=== PATIENT | male | born 1940 | race Caucasian/White ===

== ENCOUNTER 2018-05-20 16:22 | Inpatient (IN) | payer MEDICARE ==
[~2018-05-20] VITALS: Ht 193 cm; Wt 81.8 kg
[2018-05-20] MEDS: furosemide 10 MG/1 ML 10ml inj IV SCH (08:00)
[~2018-05-20 16:22] MED LIST: AMIO200T40 PO; ATOR20TA PO; LISI2.5T2 PO; MAGN400C PO; METO-395 PO; NITR0.4T48 SL; SPIR25TA5 PO; WARF-55 PO
[2018-05-20 16:55] LABS: BASOPHILS % (AUTO) 0.5 % (0-1); EOSINOPHILS # (AUTO) 0.1 X10'3 (0-0.9); EOSINOPHILS % (AUTO) 1.2 % (0-6); HEMATOCRIT 40.5 % (42.0-52.0); HEMOGLOBIN 13.4 g/dl (14.0-17.9); LYMPHOCYTES # (AUTO) 1.7 X10'3 (1.1-4.8); LYMPHOCYTES % (AUTO) 17.9 % (21-51); MEAN CORPUSCULAR HEMOGLOBIN 35.4 PG (27.0-31.0); MEAN CORPUSCULAR HGB CONC 33.2 % (33.0-36.5); MEAN CORPUSCULAR VOLUME 106.6 FL (78-98); MEAN PLATELET VOLUME 8.4 FL (7.4-10.4); MONOCYTES # (AUTO) 0.7 X10'3 (0-0.9); MONOCYTES % (AUTO) 7.9 % (2-12); NEUTROPHILS # (AUTO) 6.8 X10'3 (1.8-7.7); NEUTROPHILS % (AUTO) 72.5 % (42-75); PLATELET COUNT 217 X10'3 (140-440); RED CELL DISTRIBUTION WIDTH 14.8 % (11.5-14.5); WHITE BLOOD COUNT 9.4 X10'3 (4.5-11.0)
[2018-05-20] MEDS ORDERED: etomidate 2mg/ml inj. IV ONE (17:00)
[2018-05-20 17:07] LABS: ALANINE AMINOTRANSFERASE 29 U/L (12-78); ALBUMIN 3.6 G/DL (3.4-5.0); ALBUMIN/GLOBULIN RATIO 0.8 (1.1-1.5); ALKALINE PHOSPHATASE 165 IU/L (46-116); ANION GAP 9 (8-16); ASPARTATE AMINO TRANSFERASE 37 U/L (10-37); BILIRUBIN,TOTAL 1.2 MG/DL (0.1-1.0); BLOOD UREA NITROGEN 20 MG/DL (7-18); BUN/CREATININE RATIO 14.9 (5.4-32.0); CALCIUM 8.7 MG/DL (8.5-10.1); CHLORIDE 101 MMOL/L (99-107); CREATININE 1.34 MG/DL (0.60-1.10); GLUCOSE 157 MG/DL (70-104); POTASSIUM 4.1 MMOL/L (3.5-5.1); SODIUM 137 MMOL/L (135-145); TOTAL CARBON DIOXIDE 26.7 MMOL/L (24-32); eGFR 52 ML/MIN
[2018-05-20 17:08] LABS: INR 3.8 INR; PARTIAL THROMBOPLASTIN TIME 42 SECONDS (22-32); PROTHROMBIN TIME 35.7 SECONDS (9.0-12.0)
[2018-05-20] MEDS ORDERED: aspirin 81mg tab.chew PO ONE (18:00)
[2018-05-20] MEDS ORDERED: FURO-150 PO (18:43)
[2018-05-20] MEDS ORDERED: temazepam 15mg capsule PO PRN (21:00)
[2018-05-20] MEDS ORDERED: metoclopramide 5 mg/ml inj IV PRN (21:40)
[2018-05-20] MEDS ORDERED: acetaminophen 650mg rectal suppository RC PRN (21:40)
[2018-05-20] MEDS ORDERED: HYDROmorphone 1 mg/ml syringe IV PRN (21:40)
[2018-05-20] MEDS ORDERED: bisacodyl 10mg suppository rectal RC PRN (21:40)
[2018-05-20] MEDS ORDERED: acetaminophen 325mg tablet PO PRN ×2 (21:40)
[2018-05-20] MEDS ORDERED: ondansetron/PF 4mg/2ml inj IV PRN (21:40)
[2018-05-20] MEDS ORDERED: HYDROcodone/acetaminophen 10/325mg tab PO PRN (21:40)
[2018-05-20] MEDS ORDERED: mag hydrox/Alum hydrox/simeth 30ml oral suspension PO PRN (21:40)
[2018-05-20] MEDS ORDERED: magnesium hydroxide 30ml (MOM) UD suspension PO PRN (21:40)
[2018-05-20] MEDS ORDERED: morphine 4 MG/ML inj SYRINge IV PRN (21:40)
[2018-05-20 22:00] LABS: MAGNESIUM 1.8 MG/DL (1.5-2.4); PHOSPHORUS 3.7 MG/DL (2.3-4.5)
[2018-05-20 22:10] VITALS: BP 132/92
[2018-05-20 22:20] LABS: INR 3.1 INR; PROTHROMBIN TIME 29.8 SECONDS (9.0-12.0)
[2018-05-20 22:23] LABS: LIPASE 160 U/L (73-393)
[2018-05-21 03:00] VITALS: BP 112/66
[2018-05-21 06:00] VITALS: BP 114/68
[2018-05-21 06:05] LABS: BASOPHILS # (AUTO) 0.1 X10'3 (0-0.2); BASOPHILS % (AUTO) 0.8 % (0-1); EOSINOPHILS # (AUTO) 0.1 X10'3 (0-0.9); HEMATOCRIT 34.6 % (42.0-52.0); HEMOGLOBIN 11.5 g/dl (14.0-17.9); LYMPHOCYTES # (AUTO) 1.4 X10'3 (1.1-4.8); LYMPHOCYTES % (AUTO) 21.1 % (21-51); MEAN CORPUSCULAR HEMOGLOBIN 35.3 PG (27.0-31.0); MEAN CORPUSCULAR HGB CONC 33.4 % (33.0-36.5); MEAN CORPUSCULAR VOLUME 105.9 FL (78-98); MEAN PLATELET VOLUME 8.6 FL (7.4-10.4); MONOCYTES # (AUTO) 0.6 X10'3 (0-0.9); MONOCYTES % (AUTO) 9.4 % (2-12); NEUTROPHILS # (AUTO) 4.6 X10'3 (1.8-7.7); NEUTROPHILS % (AUTO) 67.7 % (42-75); PLATELET COUNT 157 X10'3 (140-440); RED BLOOD COUNT 3.26 X10'6 (4.70-6.10); RED CELL DISTRIBUTION WIDTH 14.4 % (11.5-14.5); WHITE BLOOD COUNT 6.7 X10'3 (4.5-11.0)
[2018-05-21 06:28] LABS: ALANINE AMINOTRANSFERASE 18 U/L (12-78); ALBUMIN 2.9 G/DL (3.4-5.0); ALBUMIN/GLOBULIN RATIO 0.8 (1.1-1.5); ALKALINE PHOSPHATASE 122 IU/L (46-116); ANION GAP 9 (8-16); ASPARTATE AMINO TRANSFERASE 31 U/L (10-37); BILIRUBIN,TOTAL 1.4 MG/DL (0.1-1.0); CALCIUM 8.3 MG/DL (8.5-10.1); CHLORIDE 105 MMOL/L (99-107); CHOL/HDL RATIO 2.4 (0.00-4.99); CHOLESTEROL 136 MG/DL (0-200); CREATININE 1.09 MG/DL (0.60-1.10); GLUCOSE 84 MG/DL (70-104); HDL CHOLESTEROL 56 MG/DL (35-60); LDL CHOLESTEROL 68 MG/DL (50-100); POTASSIUM 3.7 MMOL/L (3.5-5.1); SODIUM 139 MMOL/L (135-145); TOTAL PROTEIN 6.6 G/DL (6.4-8.2); TRIGLYCERIDES 86 MG/DL (20-135); eGFR 65 ML/MIN
[2018-05-21 06:35] LABS: BLOOD UREA NITROGEN 20 MG/DL (7-18); BUN/CREATININE RATIO 18.3 (5.4-32.0)
[2018-05-21 06:41] LABS: INR 2.4 INR; PROTHROMBIN TIME 23.5 SECONDS (9.0-12.0)
[2018-05-21] MEDS: furosemide 10 MG/1 ML 10ml inj IV SCH (07:30)
[2018-05-21] MEDS ORDERED: amiodarone 200mg tablet PO SCH (08:00)
[2018-05-21] MEDS ORDERED: pantoprazole 40 MG vial IV SCH (08:00)
[2018-05-21] MEDS ORDERED: nicotine 21mg patch - 24 hr TD SCH (08:00)
[2018-05-21] MEDS ORDERED: docusate sod 100mg capsule PO SCH (08:00)
[2018-05-21] MEDS ORDERED: lisinopril 2.5mg tablet PO SCH (08:00)
[2018-05-21] MEDS ORDERED: aspirin 81mg tab.chew PO SCH (08:30)
[2018-05-21] MEDS ORDERED: pneumococcal 23-VAL P-sac vacc 25 mcg/0.5ml vial IMVAC ONE (10:00)
[2018-05-21] MEDS ORDERED: metoprolol succinate 25mg (24-HOUR) SR. Tablet PO SCH ×2 (10:30→12:30)
[2018-05-21] MEDS ORDERED: potassium Cl 20 mEq SR tablet PO STA (10:33)
[2018-05-21] MEDS ORDERED: magnesium 2GM in 50ml NS 50 ML IV ONE (10:35)
[2018-05-21] MEDS ORDERED: AMIO100T4 PO ×2 (10:38→13:11)
[2018-05-21] MEDS ORDERED: METO50TA7 PO (10:49)
[2018-05-21 10:58] LABS: MAGNESIUM 1.9 MG/DL (1.5-2.4)
[2018-05-21 11:00] VITALS: BP 111/66
[2018-05-21] MEDS ORDERED: warfarin 5mg tablet PO SCH (21:00)
[2018-05-21] MEDS ORDERED: atorvastatin 20mg tablet PO SCH (21:00)
[2018-05-22] MEDS ORDERED: amiodarone 200mg tablet PO SCH ×2 (08:00)
== END 2018-05-21 16:15 | disposition home or self-care (01) | DRG 280 ==
LOC: ER 16:23 → ED HOLD 21:37 → PCU 3S 22:05
PROVIDERS: ADMIT Family Medicine; ATTEND Family Medicine
PROC: 5A2204Z Restoration of Cardiac Rhythm, Single (ICD-10-PCS; principal; 2018-05-20)
PROC: 3E0234Z Introduction of Serum, Toxoid and Vaccine into Muscle, Percutaneous Approach (ICD-10-PCS; 2018-05-21)
PROC: 4B02XTZ Measurement of Cardiac Defibrillator, External Approach (ICD-10-PCS; 2018-05-21)
DX: I47.2 Ventricular tachycardia (principal); I21.A1 Myocardial infarction type 2; I50.23 Acute on chronic systolic (congestive) heart failure; N17.9 Acute kidney failure, unspecified; I42.9 Cardiomyopathy, unspecified; I48.92 Unspecified atrial flutter; I48.0 Paroxysmal atrial fibrillation; E78.5 Hyperlipidemia, unspecified; I51.3 Intracardiac thrombosis, not elsewhere classified; E86.1 Hypovolemia; F10.10 Alcohol abuse, uncomplicated; I11.0 Hypertensive heart disease with heart failure; I25.10 Atherosclerotic heart disease of native coronary artery without angina pectoris; F17.200 Nicotine dependence, unspecified, uncomplicated; Z90.49 Acquired absence of other specified parts of digestive tract; Z95.810 Presence of automatic (implantable) cardiac defibrillator; Z23 Encounter for immunization; Z88.8 Allergy status to other drugs, medicaments and biological substances; Z79.899 Other long term (current) drug therapy; Z79.82 Long term (current) use of aspirin; Z79.01 Long term (current) use of anticoagulants; Z87.01 Personal history of pneumonia (recurrent); Z80.41 Family history of malignant neoplasm of ovary; Z71.41 Alcohol abuse counseling and surveillance of alcoholic
CPT/HCPCS: 36415; 71045; 80053; 80061; 83605; 83690; 83735; 83880; 84100; 84484; 85025; 85610; 85730; 87070; 90732; 93005; 93308; C9113; G0378; J1940; J3475; J3490

== ENCOUNTER 2018-06-26 01:27 | Inpatient (IN) | payer MEDICARE | END 2018-06-30 11:30 | disposition home or self-care (01) | LOC: ER 01:27 → PCU 3S 06-27 19:20 → ED HOLD 05:13 → PCU 3S 06:48 | DX: A41.9 Sepsis, unspecified organism (principal); I50.23 Acute on chronic systolic (congestive) heart failure; J96.01 Acute respiratory failure with hypoxia ==

== ENCOUNTER 2020-03-09 19:07 | Emergency (ER) | payer MEDICARE ==
[~2020-03-09] VITALS: Ht 193 cm; Wt 84.1 kg
[~2020-03-09 19:07] MED LIST changes: -AMIO200T40 PO; +FOLI1TAB16 PO; +FURO-150 PO; +LEVO500T89 PO; -MAGN400C PO; -METO-395 PO; +METO50TA7 PO; -NITR0.4T48 SL; +POTA20TA10 PO; -SPIR25TA5 PO; +thiamine tablet PO
[2020-03-09 19:39] LABS: BASOPHILS % (AUTO) 0.5 % (0-1); EOSINOPHILS % (AUTO) 0.4 % (0-6); HEMATOCRIT 38.3 % (42.0-52.0); HEMOGLOBIN 12.9 g/dl (14.0-17.9); LYMPHOCYTES % (AUTO) 12.1 % (21-51); MEAN CORPUSCULAR HEMOGLOBIN 35.4 PG (27.0-31.0); MEAN CORPUSCULAR HGB CONC 33.6 g/dL (33.0-36.5); MEAN CORPUSCULAR VOLUME 105.2 FL (78-98); MEAN PLATELET VOLUME 8.6 FL (7.4-10.4); MONOCYTES # (AUTO) 1.1 X10'3 (0-0.9); MONOCYTES % (AUTO) 12.6 % (2-12); NEUTROPHILS # (AUTO) 6.3 X10'3 (1.8-7.7); NEUTROPHILS % (AUTO) 74.4 % (42-75); PLATELET COUNT 160 X10'3 (140-440); RED BLOOD COUNT 3.64 X10'6 (4.70-6.10); RED CELL DISTRIBUTION WIDTH 13.3 % (11.5-14.5); WHITE BLOOD COUNT 8.5 X10'3 (4.5-11.0)
[2020-03-09 19:53] LABS: ALANINE AMINOTRANSFERASE 20 U/L (12-78); ALBUMIN 3.8 G/DL (3.4-5.0); ALKALINE PHOSPHATASE 113 IU/L (46-116); ANION GAP 2 (8-16); ASPARTATE AMINO TRANSFERASE 18 U/L (10-37); BLOOD UREA NITROGEN 22 MG/DL (7-18); BUN/CREATININE RATIO 13.4 (5.4-32.0); CALCIUM 8.7 MG/DL (8.5-10.1); CHLORIDE 103 MMOL/L (99-107); CREATININE 1.64 MG/DL (0.60-1.10); GLUCOSE 112 MG/DL (70-104); POTASSIUM 3.8 MMOL/L (3.5-5.1); SODIUM 134 MMOL/L (135-145); TOTAL CARBON DIOXIDE 29.3 MMOL/L (24-32); TOTAL PROTEIN 7.6 G/DL (6.4-8.2); eGFR 41 ML/MIN
[2020-03-09] MEDS ORDERED: MEXI150C PO (22:09)
[2020-03-09] MEDS ORDERED: SPIR25TA5 PO (22:09)
[2020-03-09] MEDS ORDERED: normal saline 1000ML IV soln IVB ONE (23:00)
[2020-03-10 01:33] VITALS: BP 108/74
== END 2020-03-10 01:29 | disposition home or self-care (01) ==
LOC: ER 19:07
DX: R42 Dizziness and giddiness (principal); R07.89 Other chest pain; R06.02 Shortness of breath; R53.83 Other fatigue; I48.91 Unspecified atrial fibrillation; J44.9 Chronic obstructive pulmonary disease, unspecified; E03.9 Hypothyroidism, unspecified; I13.0 Hypertensive heart and chronic kidney disease with heart failure and stage 1 through stage 4 chronic kidney disease, or unspecified chronic kidney disease; N18.9 Chronic kidney disease, unspecified; F17.200 Nicotine dependence, unspecified, uncomplicated; Z87.01 Personal history of pneumonia (recurrent); Z90.89 Acquired absence of other organs; Z95.0 Presence of cardiac pacemaker; Z72.89 Other problems related to lifestyle; Z88.8 Allergy status to other drugs, medicaments and biological substances; Z79.899 Other long term (current) drug therapy
CPT/HCPCS: 36415; 71045; 80053; 83880; 84484; 85025; 93005; 99285; J7030

== ENCOUNTER 2021-08-30 15:30 | Emergency (ER) | payer MEDICARE ==
[~2021-08-30] VITALS: Ht 193 cm; Wt 90.0 kg
[~2021-08-30 15:30] MED LIST changes: -FOLI1TAB16 PO; -FURO-150 PO; +FURO20TA4 PO; -LEVO500T89 PO; +LISI2.5T14 PO; -LISI2.5T2 PO; -METO50TA7 PO; -POTA20TA10 PO; +SOTA80TA73 PO; +SPIR25TA5 PO; -thiamine tablet PO
--- NOTE | 2021-08-30 15:30 | NUR ---
PT ARRIVES WITH STABLE VFIB ADENOSINE GIVEN X 2 WITH NO RESPONSE SETTING UP FOR CARDIOVERSION AWAITING DR HAYDEN
[2021-08-30] MEDS ORDERED: normal saline 1000ML IV soln IVB ONE (15:40)
[2021-08-30] MEDS ORDERED: normal saline 1000ml 1,000 ML IV ONE (15:40)
[2021-08-30] MEDS ORDERED: midazolam 1 mg/ML 2ml injection IV ONE (15:55)
[2021-08-30] MEDS ORDERED: etomidate 2mg/ml inj. IV ONE (15:55)
[2021-08-30 15:57] LABS: BASOPHILS # (AUTO) 0.1 X10'3 (0-0.2); BASOPHILS % (AUTO) 0.8 % (0-1); EOSINOPHILS % (AUTO) 0.3 % (0-6); HEMATOCRIT 38.1 % (42.0-52.0); HEMOGLOBIN 12.7 g/dl (14.0-17.9); LYMPHOCYTES # (AUTO) 1.3 X10'3 (1.1-4.8); LYMPHOCYTES % (AUTO) 16.7 % (21-51); MEAN CORPUSCULAR HEMOGLOBIN 34.5 PG (27.0-31.0); MEAN CORPUSCULAR HGB CONC 33.4 g/dL (33.0-36.5); MEAN CORPUSCULAR VOLUME 103.4 FL (78-98); MEAN PLATELET VOLUME 8.7 FL (7.4-10.4); MONOCYTES # (AUTO) 0.8 X10'3 (0-0.9); MONOCYTES % (AUTO) 9.6 % (2-12); NEUTROPHILS # (AUTO) 5.8 X10'3 (1.8-7.7); NEUTROPHILS % (AUTO) 72.6 % (42-75); PLATELET COUNT 166 X10'3 (140-440); RED BLOOD COUNT 3.68 X10'6 (4.70-6.10); RED CELL DISTRIBUTION WIDTH 14.8 % (11.5-14.5); WHITE BLOOD COUNT 7.9 X10'3 (4.5-11.0)
[2021-08-30 16:06] LABS: APTT 35 SECONDS (22-32)
[2021-08-30 16:07] LABS: ALANINE AMINOTRANSFERASE 67 U/L (12-78); ALBUMIN 3.9 G/DL (3.4-5.0); ALKALINE PHOSPHATASE 158 IU/L (46-116); ANION GAP 10 (8-16); ASPARTATE AMINO TRANSFERASE 87 U/L (10-37); BLOOD UREA NITROGEN 30 MG/DL (7-18); BUN/CREATININE RATIO 21.1 (5.4-32.0); CHLORIDE 101 MMOL/L (99-107); CREATININE 1.42 MG/DL (0.60-1.10); GLUCOSE 172 MG/DL (70-104); POTASSIUM 4.9 MMOL/L (3.5-5.1); SODIUM 136 MMOL/L (135-145); TOTAL CARBON DIOXIDE 24.9 MMOL/L (24-32); TOTAL PROTEIN 7.7 G/DL (6.4-8.2); eGFR 48 ML/MIN
[2021-08-30 16:16] LABS: ETHANOL < 0.010 GM/DL (0.0-0.010); MAGNESIUM 2.2 MG/DL (1.5-2.4)
--- NOTE | 2021-08-30 16:25 | NUR ---
charting handed over to eli moseley
[2021-08-30] MEDS ORDERED: METO-384 PO (17:07)
[2021-08-30] MEDS ORDERED: magnesium hydroxide 30ml (MOM) UD suspension PO PRN (17:50)
[2021-08-30] MEDS ORDERED: mag hydrox/Alum hydrox/simeth 30ml oral suspension PO PRN (17:50)
[2021-08-30] MEDS ORDERED: acetaminophen 325mg tablet PO PRN (17:50)
[2021-08-30] MEDS ORDERED: ondansetron/PF 4mg/2ml inj IV PRN (17:50)
[2021-08-30] MEDS ORDERED: normal saline 1000ml 1,000 ML IV SCH (17:50)
[2021-08-30] MEDS: metoprolol succinate 25mg (24-HOUR) SR. Tablet PO SCH (19:46)
[2021-08-30] MEDS: docusate sod 100mg capsule PO SCH (19:46)
[2021-08-30] MEDS: lisinopril 2.5mg tablet PO SCH (19:47)
[2021-08-30] MEDS: furosemide 20MG tablet PO SCH (19:47)
--- NOTE | 2021-08-30 20:47 | NUR ---
pt resting on gurney in no acute distress. pt aware of waiting on admission. lights turned off for pt comfort
[2021-08-30] MEDS ORDERED: warfarin 5mg tablet PO SCH (21:00)
[2021-08-30 21:26] LABS: CLARITY,URINE CLEAR (Clear); COLOR,URINE YELLOW (Yellow); GLUCOSE, URINE NEGATIVE (Neg); KETONES,URINE NEGATIVE (Neg); LEUKOCYTE ESTERASE ,URINE NEGATIVE (Neg); NITRITES, URINE NEGATIVE (Neg); OCCULT BLOOD,URINE NEGATIVE (Neg); PH,URINE 5.5 (4.8-8.0); PROTEIN,URINE NEGATIVE (Neg); UROBILINOGEN,URINE 0.2 E.U/dL (0.2-1.0)
[2021-08-30 21:31] LABS: UA COLLECTION TYPE VOIDED
--- NOTE | 2021-08-30 21:34 | NUR ---
hospitalist aware pt trop 668. no new orders received
[2021-08-30] MEDS ORDERED: temazepam 15mg capsule PO PRN (23:20)
[2021-08-31 01:16] LABS: BASOPHILS % (AUTO) 0.6 % (0-1); EOSINOPHILS % (AUTO) 0.5 % (0-6); HEMATOCRIT 30.4 % (42.0-52.0); HEMOGLOBIN 10.4 g/dl (14.0-17.9); LYMPHOCYTES # (AUTO) 1.4 X10'3 (1.1-4.8); LYMPHOCYTES % (AUTO) 23.2 % (21-51); MEAN CORPUSCULAR HGB CONC 34.4 g/dL (33.0-36.5); MEAN CORPUSCULAR VOLUME 101.6 FL (78-98); MEAN PLATELET VOLUME 8.6 FL (7.4-10.4); MONOCYTES # (AUTO) 0.7 X10'3 (0-0.9); MONOCYTES % (AUTO) 11.1 % (2-12); NEUTROPHILS % (AUTO) 64.6 % (42-75); PLATELET COUNT 134 X10'3 (140-440); RED BLOOD COUNT 2.99 X10'6 (4.70-6.10); RED CELL DISTRIBUTION WIDTH 14.3 % (11.5-14.5); WHITE BLOOD COUNT 6.2 X10'3 (4.5-11.0)
[2021-08-31 01:23] LABS: ANION GAP 4 (8-16); BLOOD UREA NITROGEN 29 MG/DL (7-18); BUN/CREATININE RATIO 26.6 (5.4-32.0); CALCIUM 8.2 MG/DL (8.5-10.1); CHLORIDE 107 MMOL/L (99-107); CREATININE 1.09 MG/DL (0.60-1.10); GLUCOSE 86 MG/DL (70-104); POTASSIUM 4.2 MMOL/L (3.5-5.1); SODIUM 138 MMOL/L (135-145); TOTAL CARBON DIOXIDE 26.6 MMOL/L (24-32); eGFR 65 ML/MIN
--- NOTE | 2021-08-31 02:07 | NUR ---
PT SLEEPING COMFORTABLY. EQUAL RISE AND FALL OF CHEST. VITALS STABLE.
[2021-08-31 06:00] VITALS: BP 134/69
[2021-08-31] MEDS ORDERED: atorvastatin 20mg tablet PO SCH (08:00)
[2021-08-31] MEDS ORDERED: spironolactone 25 MG tablet PO SCH (08:00)
[2021-08-31] MEDS: metoprolol succinate 25mg (24-HOUR) SR. Tablet PO SCH ×2 (08:00→09:01)
[2021-08-31] MEDS: furosemide 20MG tablet PO SCH (08:58)
[2021-08-31] MEDS: lisinopril 2.5mg tablet PO SCH (09:00)
[2021-08-31] MEDS: docusate sod 100mg capsule PO SCH (09:01)
[2021-08-31 11:00] VITALS: BP 129/69
[2021-09-30] MEDS ORDERED: AMIO200T27 PO (02:14)
[2021-09-30] MEDS ORDERED: FURO-150 PO (02:15)
[2021-09-30] MEDS ORDERED: METO-384 PO (02:17)
[2021-10-02] MEDS ORDERED: LISI2.5T14 PO (10:19)
[2021-10-02] MEDS ORDERED: SPIR25TA PO (10:19)
[2021-10-02] MEDS ORDERED: AMIO200T67 PO (10:19)
[2021-10-02] MEDS ORDERED: FURO-150 PO (10:19)
== END 2021-08-31 14:48 | disposition home or self-care (01) ==
LOC: ER 15:30 → ED HOLD 17:48 → PCU 3S 08-31 05:45
PROVIDERS: ADMIT Family Medicine; ATTEND Family Medicine
DX: R77.8 Other specified abnormalities of plasma proteins (principal); I47.1 Supraventricular tachycardia; R06.02 Shortness of breath; I13.0 Hypertensive heart and chronic kidney disease with heart failure and stage 1 through stage 4 chronic kidney disease, or unspecified chronic kidney disease; N18.9 Chronic kidney disease, unspecified; I48.91 Unspecified atrial fibrillation; J44.9 Chronic obstructive pulmonary disease, unspecified; E03.9 Hypothyroidism, unspecified; Z76.89 Persons encountering health services in other specified circumstances; Z87.01 Personal history of pneumonia (recurrent); Z90.89 Acquired absence of other organs; Z95.0 Presence of cardiac pacemaker; Z72.89 Other problems related to lifestyle; Z88.8 Allergy status to other drugs, medicaments and biological substances; Z79.899 Other long term (current) drug therapy
CPT/HCPCS: 36415; 71045; 80048; 80053; 80320; 81003; 83735; 83880; 84484; 85025; 85610; 85651; 85730; 92960; 93005; 94799; 96361; 96374; 97116; 97161; 97530; 99291; G0378; J2250; J3490; J7030; 94760

== ENCOUNTER 2021-09-28 01:25 | Inpatient (IN) | payer MEDICARE ==
--- NOTE | 2021-09-27 12:00 | NUR ---
No sitter needed at this time, sitter was removed from room. Nursing to continue to monitor.
[~2021-09-28] VITALS: Ht 193 cm; Wt 81.8 kg
[2021-09-28] VITALS (11 sets, daily range): BP systolic 81–115; BP diastolic 51–92
[~2021-09-28 01:25] MED LIST changes: +METO-384 PO; -SOTA80TA73 PO
[2021-09-28] MEDS ORDERED: etomidate 2mg/ml inj. IV ONE (01:45)
--- NOTE | 2021-09-28 01:45 | NUR ---
at bedside to cardiovert patient
--- NOTE | 2021-09-28 01:50 | NUR ---
Pt cardioverted at 50 joules. Pt tolerated procedure well. HR is now 85 with PVCs. EKG being performed at bedside right now.
[2021-09-28] MEDS ORDERED: aspirin 325mg tablet PO ONE (01:55)
[2021-09-28 01:59] LABS: BASOPHILS % (AUTO) 0.4 % (0-1); EOSINOPHILS # (AUTO) 0.1 X10'3 (0-0.9); EOSINOPHILS % (AUTO) 0.9 % (0-6); HEMATOCRIT 37.8 % (42.0-52.0); HEMOGLOBIN 12.8 g/dl (14.0-17.9); LYMPHOCYTES # (AUTO) 0.8 X10'3 (1.1-4.8); LYMPHOCYTES % (AUTO) 9.4 % (21-51); MEAN CORPUSCULAR HEMOGLOBIN 34.5 PG (27.0-31.0); MEAN CORPUSCULAR HGB CONC 33.9 g/dL (33.0-36.5); MEAN CORPUSCULAR VOLUME 101.7 FL (78-98); MEAN PLATELET VOLUME 8.5 FL (7.4-10.4); MONOCYTES # (AUTO) 0.3 X10'3 (0-0.9); MONOCYTES % (AUTO) 3.3 % (2-12); NEUTROPHILS # (AUTO) 7.3 X10'3 (1.8-7.7); PLATELET COUNT 177 X10'3 (140-440); RED BLOOD COUNT 3.72 X10'6 (4.70-6.10); RED CELL DISTRIBUTION WIDTH 13.9 % (11.5-14.5); WHITE BLOOD COUNT 8.5 X10'3 (4.5-11.0)
[2021-09-28 02:17] LABS: ALANINE AMINOTRANSFERASE 42 U/L (12-78); ALBUMIN 3.7 G/DL (3.4-5.0); ALBUMIN/GLOBULIN RATIO 0.9 (1.1-1.5); ALKALINE PHOSPHATASE 145 IU/L (46-116); ANION GAP 11 (8-16); ASPARTATE AMINO TRANSFERASE 56 U/L (10-37); BILIRUBIN,TOTAL 1.1 MG/DL (0.1-1.0); BLOOD UREA NITROGEN 24 MG/DL (7-18); BUN/CREATININE RATIO 16.4 (5.4-32.0); CALCIUM 8.8 MG/DL (8.5-10.1); CHLORIDE 99 MMOL/L (99-107); CREATININE 1.46 MG/DL (0.60-1.10); GLUCOSE 202 MG/DL (70-104); POTASSIUM 4.6 MMOL/L (3.5-5.1); SODIUM 135 MMOL/L (135-145); TOTAL CARBON DIOXIDE 25.2 MMOL/L (24-32); TOTAL PROTEIN 7.8 G/DL (6.4-8.2); eGFR 46 ML/MIN
[2021-09-28] MEDS ORDERED: ipratropium/albuterol 3ml nebule NEB ONE (02:20)
[2021-09-28] MEDS ORDERED: normal saline 1000ML IV soln IVB ONE ×2 (03:30→04:15)
--- NOTE | 2021-09-28 03:30 | NUR ---
notified that pt blood pressure is consistently lowering. Pt's last BP was 83/58. Addendum: 09/28/21 at 0331 by RBOLT ordered 500ml fluid bolus in response
[2021-09-28] MEDS ORDERED: cefTRIAXone 1g/NS 100ml IVPB 100 ML IV ONE (03:35)
[2021-09-28] MEDS ORDERED: azithromycin/NS 500mg/250ml 250 ML IV ONE (03:35)
[2021-09-28] MEDS ORDERED: potassium CL 10mEq/100ml bag 100 ML IV PRN (04:15)
[2021-09-28] MEDS ORDERED: magnesium Cl slow-release 64mg tablet PO PRN (04:15)
[2021-09-28] MEDS ORDERED: POTASSIUM BICARB 20meq eff tab 20 MEQ TABLET.EFF PO PRN ×2 (04:15)
[2021-09-28] MEDS ORDERED: acetaminophen 325mg tablet PO PRN ×2 (04:15)
[2021-09-28] MEDS ORDERED: ondansetron/PF 4mg/2ml inj IV PRN (04:15)
[2021-09-28] MEDS ORDERED: magnesium 4gm in 100ml NS 100 ML IV PRN (04:15)
[2021-09-28] MEDS ORDERED: magnesium 2GM in 50ml NS 50 ML IV PRN (04:15)
[2021-09-28] MEDS ORDERED: magnesium hydroxide 30ml (MOM) UD suspension PO PRN (04:15)
[2021-09-28] MEDS ORDERED: HYDROcodone/acetaminophen 10/325mg tab PO PRN (04:15)
[2021-09-28] MEDS ORDERED: HYDROcodone/acetaminophen 5mg/325mg tablet PO PRN (04:15)
[2021-09-28] MEDS ORDERED: mag hydrox/Alum hydrox/simeth 30ml oral suspension PO PRN (04:15)
[2021-09-28] MEDS ORDERED: morphine 2 MG/ML inj. syringe IV PRN ×2 (04:15)
--- NOTE | 2021-09-28 04:22 | NUR ---
MD notified of BP of 78/47. MD ordered another 500ml fluid bolus. Pt lungs sound clear to auscultation.
--- NOTE | 2021-09-28 04:57 | NUR ---
RN spoke with Hospitalist who gave verbal order to start pt on dopamine to correct blood pressure.
[2021-09-28] MEDS ORDERED: DOPamine 400mg/D5W 250ml 250 ML IV SCH (05:00)
[2021-09-28 05:11] LABS: CREATININE 1.31 MG/DL (0.60-1.10); MAGNESIUM 1.5 MG/DL (1.5-2.4); POTASSIUM 4.9 MMOL/L (3.5-5.1); eGFR 52 ML/MIN
--- NOTE | 2021-09-28 05:25 | NUR ---
Hospitalist paged in regards to critical troponin lab value.
--- NOTE | 2021-09-28 07:50 | NUR ---
Patient received on bertin to PCU. Pt is a/ox4 and very pleasant. He is able to make his needs be known and no c/o or s/s pain or distress. Call light within reach. Oriented to room. Pt on 4L NC with stable O2. Dopamine running at 5mcg with stable BP. Will continue to monitor.
[2021-09-28] MEDS: docusate sod 100mg capsule PO SCH ×2 (08:00→20:04)
[2021-09-28] MEDS ORDERED: warfarin 5mg tablet PO SCH (08:00)
[2021-09-28] MEDS ORDERED: spironolactone 25 MG tablet PO SCH (08:00)
[2021-09-28] MEDS ORDERED: metoprolol succinate 25mg (24-HOUR) SR. Tablet PO SCH (08:00)
[2021-09-28] MEDS: K and/or MAG REPLACEMENT MC SCH ×2 (08:00→20:00)
[2021-09-28] MEDS: furosemide 20MG tablet PO SCH ×2 (08:00→20:00)
[2021-09-28] MEDS: lisinopril 2.5mg tablet PO SCH ×2 (08:00→20:00)
--- NOTE | 2021-09-28 09:34 | NUR ---
Conchis BEST r/t AM medication PAGER ID: [phone] MESSAGE: [phone] Cristopher Simon BP 92/52 HR 51-65 need direction on HTN med and Diuretic AM med
--- NOTE | 2021-09-28 09:39 | NUR ---
Per MD Perez: hold all AM meds until MD reviews further d/t low SBP 92 & HR 51
[2021-09-28] MEDS: atorvastatin 20mg tablet PO SCH (10:46)
--- NOTE | 2021-09-28 12:10 | NUR ---
Paged SHIFT SUPERVISOR FILM PROCESSING [phone]. Cristopher Simon. SBP 80's. Manual 92/55. Did not give meds yet. Pt asymptomatic. Pls advise.
--- NOTE | 2021-09-28 12:35 | NUR ---
Per AUTOMATIC SCREWMAKER JK, ok to hold AM doses d/t SBP 92.
--- NOTE | 2021-09-28 13:40 | NUR ---
Pt's BP continuous to be on the soft side but pt is asymptomatic and MAP is above 60. Monitoring closely.
[2021-09-28] MEDS ORDERED: amiodarone 150mg/dext, iso-os 100 ML IV ONE (15:30)
--- NOTE | 2021-09-28 18:03 | NUR ---
Orientee documentation: I have reviewed and agree with all interventions, assessments performed and documented by TONY Valentin II.
--- NOTE | 2021-09-28 18:30 | NUR ---
Patient in room PCU 3015. I have received report from fany and had the opportunity to ask questions and assume patient care.
--- NOTE | 2021-09-28 18:30 | NUR ---
Patient in room U 3015. I have received report from MARVEL HIGGINS and had the opportunity to ask questions and assume patient care WITH TONY ARTIS. Addendum: 09/29/21 at 0156 by Keon Davidson RN Amended: Links added.
--- NOTE | 2021-09-28 20:00 | NUR ---
I have reviewed and agree with all interventions, assessments performed and documented by TONY ARTIS.. Addendum: 09/29/21 at 0200 by Keon Davidson RN Amended: Links added.
[2021-09-28] MEDS: amiodarone 200mg tablet PO SCH (20:04)
--- NOTE | 2021-09-28 20:33 | NUR ---
pt phone is missing, looked through bed and linen unable to locate, pt has foam charger in wall, angelita ramos. wofe called and she states he had his phone today and did not take it home. will look through linen in room. Addendum: 09/28/21 at 2033 by Keon Davidson RN Amended: Links added.
--- NOTE | 2021-09-28 20:35 | NUR ---
pt found phone in bed under leg. Addendum: 09/28/21 at 2034 by Keon Davidson RN Amended: Links added.
[2021-09-28] MEDS ORDERED: warfarin 5mg tablet PO ONE (21:00)
[2021-09-29] VITALS (8 sets, daily range): BP systolic 85–141; BP diastolic 53–85
[2021-09-29 06:12] LABS: LYMPHOCYTES # (AUTO) 0.7 X10'3 (1.1-4.8); MEAN PLATELET VOLUME 8.3 FL (7.4-10.4); MONOCYTES # (AUTO) 0.6 X10'3 (0-0.9)
[2021-09-29 06:16] LABS: BASOPHILS % (AUTO) 0.9 % (0-1); EOSINOPHILS # (AUTO) 0.1 X10'3 (0-0.9); EOSINOPHILS % (AUTO) 2.8 % (0-6); HEMATOCRIT 28.3 % (42.0-52.0); HEMOGLOBIN 9.8 g/dl (14.0-17.9); LYMPHOCYTES % (AUTO) 13.1 % (21-51); MEAN CORPUSCULAR HEMOGLOBIN 35.3 PG (27.0-31.0); MEAN CORPUSCULAR HGB CONC 34.6 g/dL (33.0-36.5); MEAN CORPUSCULAR VOLUME 102.1 FL (78-98); MONOCYTES % (AUTO) 11.1 % (2-12); NEUTROPHILS # (AUTO) 3.8 X10'3 (1.8-7.7); NEUTROPHILS % (AUTO) 72.1 % (42-75); PLATELET COUNT 108 X10'3 (140-440); RED BLOOD COUNT 2.77 X10'6 (4.70-6.10); RED CELL DISTRIBUTION WIDTH 14.3 % (11.5-14.5); WHITE BLOOD COUNT 5.2 X10'3 (4.5-11.0)
--- NOTE | 2021-09-29 06:19 | NUR ---
Problems reprioritized. Patient report given, questions answered & plan of care reviewed with
[2021-09-29 06:22] LABS: ALANINE AMINOTRANSFERASE 51 U/L (12-78); ALBUMIN 2.7 G/DL (3.4-5.0); ALBUMIN/GLOBULIN RATIO 0.9 (1.1-1.5); ALKALINE PHOSPHATASE 83 IU/L (46-116); ANION GAP 5 (8-16); ASPARTATE AMINO TRANSFERASE 50 U/L (10-37); BLOOD UREA NITROGEN 23 MG/DL (7-18); BUN/CREATININE RATIO 19.8 (5.4-32.0); CALCIUM 7.9 MG/DL (8.5-10.1); CHLORIDE 104 MMOL/L (99-107); CREATININE 1.16 MG/DL (0.60-1.10); GLUCOSE 95 MG/DL (70-104); POTASSIUM 4.3 MMOL/L (3.5-5.1); SODIUM 135 MMOL/L (135-145); TOTAL CARBON DIOXIDE 26.2 MMOL/L (24-32); TOTAL PROTEIN 5.8 G/DL (6.4-8.2); eGFR 60 ML/MIN
--- NOTE | 2021-09-29 06:35 | NUR ---
Patient was p/u by Myriam with annalise. Personal belongings were bagged with pt label pending pts brother Chauncey to p/u. All addtl ppwk completed. Addendum: 09/29/21 at 0637 by Mariah Turner RN wrong patient
--- NOTE | 2021-09-29 07:49 | NUR ---
paged power technician [id number]. Cristopher Simon. Needs EKG, ever. x
[2021-09-29] MEDS: lisinopril 2.5mg tablet PO SCH (08:00)
[2021-09-29] MEDS ORDERED: metoprolol succinate 25mg (24-HOUR) SR. Tablet PO SCH (08:00)
[2021-09-29] MEDS: K and/or MAG REPLACEMENT MC SCH (08:00)
[2021-09-29] MEDS: furosemide 20MG tablet PO SCH ×2 (08:00→10:16)
--- NOTE | 2021-09-29 08:16 | NUR ---
Per HELP DESK TEAM LEADER JK. With auto BP of 105/62, HR low 60's and manual BP 98/68, HR low 60's. Ok to give metoprolol. Hold lisinopril.
[2021-09-29 08:26] LABS: MAGNESIUM 1.9 MG/DL (1.5-2.4)
[2021-09-29] MEDS: docusate sod 100mg capsule PO SCH (08:30)
[2021-09-29] MEDS: atorvastatin 20mg tablet PO SCH (08:31)
[2021-09-29] MEDS: amiodarone 200mg tablet PO SCH (08:31)
--- NOTE | 2021-09-29 10:22 | NUR ---
HR elevated after walk with therapies. Lasix given as ordered
[2021-09-29] MEDS ORDERED: spironolactone 25 MG tablet PO SCH (12:00)
[2021-09-29] MEDS ORDERED: FURO20TA4 PO (12:11)
[2021-09-29] MEDS ORDERED: METO-384 PO (12:11)
--- NOTE | 2021-09-29 12:24 | NUR ---
Aldactone given unable to scan medication r/t no barcode
--- NOTE | 2021-09-29 12:42 | NUR ---
Paged Dr Perez PAGER ID: [phone] MESSAGE: [phone]. Cristopher Simon. Pls fix conflict of meds in d/c ppwk. Mariah Kay [phone]
--- NOTE | 2021-09-29 13:11 | NUR ---
Pged Dr Perez PAGER ID: [phone] MESSAGE: [phone]. Cristopher Simon. Pls rev conflict in d/c ppwk. Pt is waiting to leave. Rahul Lemus [phone]
[2021-09-29] MEDS ORDERED: ondansetron 4mg rapidly disintigrating tab PO PRN (13:15)
[2021-09-29] MEDS ORDERED: AMIO200T67 PO (13:44)
--- NOTE | 2021-09-29 14:40 | NUR ---
Attempted to call [facility] at [phone]. Both times I was on hold for over 10 minutes and then they hung up on me. I was not able to speak with anyone. Faxed prescriptions to [facility] at [phone].
--- NOTE | 2021-09-29 14:45 | NUR ---
Patient prepared for discharge, all PIVs removed and tolerated well with no c/o pain present. Tele monitor removed and returned. All personal belongings packed and given to . at bedside during discharge. All paperwork gone over with questions answered r/t new medications and f/u appointment. Patient medication were faxed prior to discharge to [facility]. Patient taken down stairs via w/c and loaded in to private vehicle with . Discharge delayed r/t medication conflict.
--- NOTE | 2021-09-29 16:25 | NUR ---
Orientee documentation: I have reviewed and agree with all interventions, assessments performed and documented by TONY Valentin II.
--- NOTE | 2021-09-29 17:44 | NUR ---
Called darryl x 2 times; on hold for 10 min. Finally spoke with pharmacist. New RX called in. Returned call to at [phone]. Also, advised of red shirt left behind. She will p/u at some point.
[2021-09-29] MEDS ORDERED: warfarin 5mg tablet PO ONE (21:00)
[2021-09-30] MEDS ORDERED: AMIO200T27 PO (02:14)
[2021-09-30] MEDS ORDERED: FURO-150 PO (02:15)
[2021-09-30] MEDS ORDERED: METO-384 PO (02:17)
[2021-10-02] MEDS ORDERED: LISI2.5T14 PO (10:19)
[2021-10-02] MEDS ORDERED: FURO-150 PO (10:19)
[2021-10-02] MEDS ORDERED: AMIO200T67 PO (10:19)
[2021-10-02] MEDS ORDERED: SPIR25TA PO (10:19)
== END 2021-09-29 14:46 | disposition home or self-care (01) | DRG 308 ==
LOC: ER 01:26 → ED HOLD 04:17 → PCU 3S 07:48
PROVIDERS: ADMIT Internal Medicine; ATTEND Internal Medicine
PROC: 5A2204Z Restoration of Cardiac Rhythm, Single (ICD-10-PCS; principal; 2021-09-28)
PROC: 4B02XTZ Measurement of Cardiac Defibrillator, External Approach (ICD-10-PCS; 2021-09-28)
DX: I47.2 Ventricular tachycardia (principal); N17.0 Acute kidney failure with tubular necrosis; I13.0 Hypertensive heart and chronic kidney disease with heart failure and stage 1 through stage 4 chronic kidney disease, or unspecified chronic kidney disease; I50.22 Chronic systolic (congestive) heart failure; I42.0 Dilated cardiomyopathy; E03.9 Hypothyroidism, unspecified; J44.9 Chronic obstructive pulmonary disease, unspecified; I95.9 Hypotension, unspecified; N18.9 Chronic kidney disease, unspecified; E78.5 Hyperlipidemia, unspecified; F10.10 Alcohol abuse, uncomplicated; I25.10 Atherosclerotic heart disease of native coronary artery without angina pectoris; I48.0 Paroxysmal atrial fibrillation; Z79.01 Long term (current) use of anticoagulants; Z79.899 Other long term (current) drug therapy; Z90.49 Acquired absence of other specified parts of digestive tract; Z87.01 Personal history of pneumonia (recurrent); Z95.810 Presence of automatic (implantable) cardiac defibrillator; Z88.8 Allergy status to other drugs, medicaments and biological substances; Z80.9 Family history of malignant neoplasm, unspecified
CPT/HCPCS: 36415; 71045; 80053; 82565; 83735; 83880; 84132; 84484; 85025; 85610; 87081; 93005; 93306; 94640; 94760; 96365; 96375; 97161; 97530; 99291; G0378; J0282; J0456; J0696; J1265; J3490; J7030

== ENCOUNTER 2022-03-19 00:11 | Inpatient (IN) | payer MEDICARE ==
[~2022-03-19] VITALS: Ht 188 cm; Wt 77.3 kg
[~2022-03-19 00:11] MED LIST changes: +AMIO200T67 PO; +FURO-150 PO; -FURO20TA4 PO; +SPIR25TA PO; -SPIR25TA5 PO
[2022-03-19 00:54] LABS: BASOPHILS # (AUTO) 0.1 X10'3 (0-0.2); BASOPHILS % (AUTO) 1.1 % (0-1); EOSINOPHILS # (AUTO) 0.1 X10'3 (0-0.9); EOSINOPHILS % (AUTO) 1.3 % (0-6); HEMATOCRIT 35.4 % (42.0-52.0); HEMOGLOBIN 12.2 g/dl (14.0-17.9); LYMPHOCYTES # (AUTO) 1.7 X10'3 (1.1-4.8); LYMPHOCYTES % (AUTO) 24.2 % (21-51); MEAN CORPUSCULAR HEMOGLOBIN 34.4 PG (27.0-31.0); MEAN CORPUSCULAR HGB CONC 34.5 g/dL (33.0-36.5); MEAN CORPUSCULAR VOLUME 99.8 FL (78-98); MEAN PLATELET VOLUME 8.7 FL (7.4-10.4); MONOCYTES # (AUTO) 0.6 X10'3 (0-0.9); MONOCYTES % (AUTO) 8.5 % (2-12); NEUTROPHILS # (AUTO) 4.6 X10'3 (1.8-7.7); NEUTROPHILS % (AUTO) 64.9 % (42-75); PLATELET COUNT 165 X10'3 (140-440); RED BLOOD COUNT 3.55 X10'6 (4.70-6.10); RED CELL DISTRIBUTION WIDTH 15.3 % (11.5-14.5); WHITE BLOOD COUNT 7.1 X10'3 (4.5-11.0)
[2022-03-19 00:58] LABS: ALANINE AMINOTRANSFERASE 48 U/L (12-78); ALBUMIN 3.7 G/DL (3.4-5.0); ALBUMIN/GLOBULIN RATIO 0.9 (1.1-1.5); ALKALINE PHOSPHATASE 145 IU/L (46-116); ANION GAP 12 (8-16); ASPARTATE AMINO TRANSFERASE 66 U/L (10-37); BILIRUBIN,TOTAL 0.8 MG/DL (0.1-1.0); BLOOD UREA NITROGEN 23 MG/DL (7-18); BUN/CREATININE RATIO 16.2 (5.4-32.0); CALCIUM 9.1 MG/DL (8.5-10.1); CHLORIDE 99 MMOL/L (99-107); CREATININE 1.42 MG/DL (0.60-1.10); GLUCOSE 130 MG/DL (70-104); POTASSIUM 3.7 MMOL/L (3.5-5.1); SODIUM 138 MMOL/L (135-145); TOTAL CARBON DIOXIDE 27.3 MMOL/L (24-32); TOTAL PROTEIN 7.7 G/DL (6.4-8.2); eGFR 48 ML/MIN
[2022-03-19] MEDS ORDERED: etomidate 2mg/ml inj. IV ONE (01:35)
[2022-03-19] MEDS ORDERED: normal saline 1000ML IV soln IVB STA (02:12)
[2022-03-19] MEDS ORDERED: potassium Cl 40MEQ/270ML bag 250 ML IV PRN (02:50)
[2022-03-19] MEDS ORDERED: potassium Cl 20mEq/100mL bag 100 ML IV PRN (02:50)
[2022-03-19] MEDS ORDERED: potassium CL 10mEq/100ml bag 100 ML IV PRN (02:50)
[2022-03-19] MEDS ORDERED: magnesium hydroxide 30ml (MOM) UD suspension PO PRN (02:50)
[2022-03-19] MEDS ORDERED: magnesium 4gm in 100ml NS 100 ML IV PRN (02:50)
[2022-03-19] MEDS ORDERED: potassium Cl 40MEQ/1/2NS 520ml 520 ML IV PRN (02:50)
[2022-03-19] MEDS ORDERED: PERFLUTREN PROTEIN-A MICROSPHR (Optison) 0.22 MG/ML 3ML VIAL IV ONE (02:50)
[2022-03-19] MEDS ORDERED: acetaminophen 325mg tablet PO PRN (02:50)
[2022-03-19] MEDS ORDERED: magnesium 2GM in 50ml NS 50 ML IV PRN (02:50)
[2022-03-19] MEDS ORDERED: potassium Cl 20 mEq SR tablet PO PRN (02:50)
[2022-03-19] MEDS ORDERED: mag hydrox/Alum hydrox/simeth 30ml oral suspension PO PRN (02:50)
[2022-03-19] MEDS ORDERED: ondansetron/PF 4mg/2ml inj IV PRN (02:50)
[2022-03-19 03:25] LABS: MAGNESIUM 1.9 MG/DL (1.5-2.4)
[2022-03-19] MEDS ORDERED: SACU1TAB PO (03:28)
[2022-03-19] MEDS ORDERED: FURO20TA4 PO (03:28)
[2022-03-19] MEDS ORDERED: FURO40TA4 PO (03:28)
[2022-03-19] MEDS ORDERED: METO-411 PO (03:28)
[2022-03-19] MEDS ORDERED: LISI2.5T14 PO (03:32)
[2022-03-19] MEDS ORDERED: SPIR25TA5 PO (03:41)
[2022-03-19] MEDS ORDERED: SOTA80TA73 PO (04:08)
[2022-03-19] MEDS ORDERED: spironolactone 25 MG tablet PO SCH ×2 (08:00→09:07)
[2022-03-19] MEDS: docusate sod 100mg capsule PO SCH ×2 (08:44→20:21)
[2022-03-19] MEDS: sacubitril/valsartan 24mg-26mg tablet PO SCH ×2 (08:44→20:36)
[2022-03-19] MEDS: atorvastatin 20mg tablet PO SCH (08:44)
[2022-03-19] MEDS: metoprolol succinate 25mg (24-HOUR) SR. Tablet PO SCH ×2 (08:45→20:20)
--- NOTE | 2022-03-19 08:50 | NUR ---
Pt is resting well, VS are stable and no distress noted at this time
[2022-03-19] MEDS ORDERED: enoxaparin 40mg/0.4ml syringe SQ SCH (20:00)
[2022-03-19 20:45] VITALS: BP 121/74
--- NOTE | 2022-03-19 20:45 | NUR ---
Patient in room PCU 3025. I have received report from er and had the opportunity to ask questions and assume patient care.
[2022-03-19] MEDS ORDERED: Melatonin 3mg tablet PO ONE (21:00)
[2022-03-19] MEDS ORDERED: warfarin 5mg tablet PO ONE (21:00)
--- NOTE | 2022-03-20 06:34 | NUR ---
Problems reprioritized. Patient report given, questions answered & plan of care reviewed with
--- NOTE | 2022-03-20 06:35 | NUR ---
Patient in room PCU 3025. I have received report from David Toth and had the opportunity to ask questions and assume patient care.
[2022-03-20 07:15] VITALS: BP 91/53
[2022-03-20 07:28] LABS: BASOPHILS # (AUTO) 0.1 X10'3 (0-0.2); EOSINOPHILS # (AUTO) 0.1 X10'3 (0-0.9); EOSINOPHILS % (AUTO) 0.9 % (0-6); HEMATOCRIT 30.3 % (42.0-52.0); HEMOGLOBIN 10.2 g/dl (14.0-17.9); MEAN CORPUSCULAR HEMOGLOBIN 33.8 PG (27.0-31.0); MEAN CORPUSCULAR HGB CONC 33.5 g/dL (33.0-36.5); MEAN CORPUSCULAR VOLUME 100.8 FL (78-98); MEAN PLATELET VOLUME 9.4 FL (7.4-10.4); MONOCYTES # (AUTO) 0.8 X10'3 (0-0.9); MONOCYTES % (AUTO) 13.1 % (2-12); NEUTROPHILS # (AUTO) 3.9 X10'3 (1.8-7.7); PLATELET COUNT 128 X10'3 (140-440); RED BLOOD COUNT 3.01 X10'6 (4.70-6.10); RED CELL DISTRIBUTION WIDTH 14.9 % (11.5-14.5); WHITE BLOOD COUNT 5.8 X10'3 (4.5-11.0)
[2022-03-20 07:34] LABS: ALANINE AMINOTRANSFERASE 43 U/L (12-78); ALBUMIN 2.7 G/DL (3.4-5.0); ALBUMIN/GLOBULIN RATIO 0.9 (1.1-1.5); ALKALINE PHOSPHATASE 108 IU/L (46-116); ANION GAP 7 (8-16); ASPARTATE AMINO TRANSFERASE 43 U/L (10-37); BILIRUBIN,TOTAL 1.6 MG/DL (0.1-1.0); BLOOD UREA NITROGEN 19 MG/DL (7-18); BUN/CREATININE RATIO 17.6 (5.4-32.0); CALCIUM 8.1 MG/DL (8.5-10.1); CHLORIDE 103 MMOL/L (99-107); CREATININE 1.08 MG/DL (0.60-1.10); GLUCOSE 90 MG/DL (70-104); MAGNESIUM 1.9 MG/DL (1.5-2.4); POTASSIUM 3.5 MMOL/L (3.5-5.1); SODIUM 138 MMOL/L (135-145); TOTAL CARBON DIOXIDE 27.6 MMOL/L (24-32); TOTAL PROTEIN 5.7 G/DL (6.4-8.2); eGFR 65 ML/MIN
[2022-03-20] MEDS ORDERED: amiodarone 200mg tablet PO SCH (08:00)
[2022-03-20] MEDS: docusate sod 100mg capsule PO SCH (08:00)
[2022-03-20] MEDS: metoprolol succinate 25mg (24-HOUR) SR. Tablet PO SCH (08:45)
[2022-03-20 10:00] VITALS: BP 90/59
[2022-03-20 12:08] VITALS: BP_SYST 90
[2022-03-20] MEDS: sacubitril/valsartan 24mg-26mg tablet PO SCH (12:08)
[2022-03-20] MEDS ORDERED: AMIO200T67 PO (12:08)
[2022-03-20] MEDS: atorvastatin 20mg tablet PO SCH (12:08)
--- NOTE | 2022-03-20 12:09 | NUR ---
Systolic BP 90, MD aware and okay with medications given.
--- NOTE | 2022-03-20 14:20 | NUR ---
Reviewed discharge instructions with pt and pt's spouse. Pt verbalized understanding. Pt has follow up appointments scheduled. Pt is alert, oriented and expresses a readiness to discharge home. Pt was dressed and wheeled downstairs to be driven home by his spouse. All of pt's belongings were returned to pt.
[2022-03-20] MEDS ORDERED: warfarin 3mg tablet PO ONE (21:00)
== END 2022-03-20 14:13 | disposition home or self-care (01) | DRG 308 ==
LOC: ER 00:12 → ED HOLD 02:55 → PCU 3S 20:30
PROVIDERS: ADMIT Family Medicine; ATTEND Family Medicine
PROC: 5A2204Z Restoration of Cardiac Rhythm, Single (ICD-10-PCS; principal; 2022-03-19)
PROC: 4B02XTZ Measurement of Cardiac Defibrillator, External Approach (ICD-10-PCS; 2022-03-19)
DX: I47.20 Ventricular tachycardia, unspecified (principal); N17.0 Acute kidney failure with tubular necrosis; I13.0 Hypertensive heart and chronic kidney disease with heart failure and stage 1 through stage 4 chronic kidney disease, or unspecified chronic kidney disease; I42.9 Cardiomyopathy, unspecified; I50.22 Chronic systolic (congestive) heart failure; N18.30 Chronic kidney disease, stage 3 unspecified; I48.0 Paroxysmal atrial fibrillation; E78.5 Hyperlipidemia, unspecified; J44.9 Chronic obstructive pulmonary disease, unspecified; E03.9 Hypothyroidism, unspecified; I25.10 Atherosclerotic heart disease of native coronary artery without angina pectoris; Z87.891 Personal history of nicotine dependence; Z90.49 Acquired absence of other specified parts of digestive tract; Z95.810 Presence of automatic (implantable) cardiac defibrillator; Z88.8 Allergy status to other drugs, medicaments and biological substances; Z79.899 Other long term (current) drug therapy
CPT/HCPCS: 36415; 71045; 80053; 83735; 83880; 84484; 85025; 85610; 87081; 93005; 93306; 94760; 97116; 97161; 99291; G0378; J3490; J7030

== ENCOUNTER 2022-05-04 07:17 | Inpatient (IN) | payer MEDICARE ==
[~2022-05-04] VITALS: Ht 193 cm; Wt 75.0 kg
[~2022-05-04 07:17] MED LIST changes: -FURO-150 PO; +FURO40TA4 PO; -LISI2.5T14 PO; -METO-384 PO; +METO-411 PO; +SACU1TAB PO; -SPIR25TA PO; +SPIR25TA5 PO
[2022-05-04 08:14] LABS: BASOPHILS # (AUTO) 0.1 X10'3 (0-0.2); EOSINOPHILS % (AUTO) 0.5 % (0-6); HEMATOCRIT 35.3 % (42.0-52.0); HEMOGLOBIN 11.7 g/dl (14.0-17.9); LYMPHOCYTES % (AUTO) 11.7 % (21-51); MEAN CORPUSCULAR HEMOGLOBIN 34.6 PG (27.0-31.0); MEAN CORPUSCULAR HGB CONC 33.1 g/dL (33.0-36.5); MEAN CORPUSCULAR VOLUME 104.4 FL (78-98); MEAN PLATELET VOLUME 9.1 FL (7.4-10.4); MONOCYTES # (AUTO) 0.8 X10'3 (0-0.9); MONOCYTES % (AUTO) 9.3 % (2-12); NEUTROPHILS # (AUTO) 6.9 X10'3 (1.8-7.7); NEUTROPHILS % (AUTO) 77.5 % (42-75); PLATELET COUNT 214 X10'3 (140-440); RED BLOOD COUNT 3.38 X10'6 (4.70-6.10); RED CELL DISTRIBUTION WIDTH 19.8 % (11.5-14.5); WHITE BLOOD COUNT 8.9 X10'3 (4.5-11.0)
[2022-05-04 08:39] LABS: ALANINE AMINOTRANSFERASE 18 U/L (12-78); ALBUMIN 3.4 G/DL (3.4-5.0); ALBUMIN/GLOBULIN RATIO 0.9 (1.1-1.5); ALKALINE PHOSPHATASE 115 IU/L (46-116); ANION GAP 10 (8-16); ASPARTATE AMINO TRANSFERASE 33 U/L (10-37); BILIRUBIN,TOTAL 3.9 MG/DL (0.1-1.0); BLOOD UREA NITROGEN 23 MG/DL (7-18); BUN/CREATININE RATIO 15.1 (5.4-32.0); CHLORIDE 103 MMOL/L (99-107); CREATININE 1.52 MG/DL (0.60-1.10); GLUCOSE 132 MG/DL (70-104); SODIUM 140 MMOL/L (135-145); TOTAL CARBON DIOXIDE 26.9 MMOL/L (24-32); TOTAL PROTEIN 7.4 G/DL (6.4-8.2); eGFR 44 ML/MIN
[2022-05-04] MEDS ORDERED: furosemide 10 MG/1 ML 10ml inj IV ONE (09:00)
[2022-05-04 09:11] LABS: PLATELET ESTIMATE NORMAL
[2022-05-04 09:12] LABS: ANISOCYTOSIS 2+; POLYCHROMASIA 1+
[2022-05-04 09:13] LABS: ACANTHOCYTES 1+; ELLIPTOCYTES 1+; SCHISTOCYTES FEW
[2022-05-04] MEDS ORDERED: ipratropium/albuterol 3ml nebule NEB PRN (11:25)
[2022-05-04] MEDS ORDERED: magnesium hydroxide 30ml (MOM) UD suspension PO PRN (11:25)
[2022-05-04] MEDS ORDERED: acetaminophen 325mg tablet PO PRN ×2 (11:25)
[2022-05-04] MEDS ORDERED: HYDROcodone/acetaminophen 10/325mg tab PO PRN (11:25)
[2022-05-04] MEDS ORDERED: morphine 2 MG/ML inj. syringe IV PRN ×2 (11:25)
[2022-05-04] MEDS ORDERED: mag hydrox/Alum hydrox/simeth 30ml oral suspension PO PRN (11:25)
[2022-05-04] MEDS ORDERED: potassium Cl 40MEQ/1/2NS 520ml 520 ML IV PRN (11:25)
[2022-05-04] MEDS ORDERED: bisacodyl 10mg suppository rectal RC PRN (11:25)
[2022-05-04] MEDS ORDERED: potassium Cl 20 mEq SR tablet PO PRN (11:25)
[2022-05-04] MEDS ORDERED: ondansetron/PF 4mg/2ml inj IV PRN (11:25)
[2022-05-04] MEDS ORDERED: magnesium Cl slow-release 64mg tablet PO PRN (11:25)
[2022-05-04] MEDS ORDERED: HYDROcodone/acetaminophen 5mg/325mg tablet PO PRN (11:25)
[2022-05-04] MEDS ORDERED: magnesium 4gm in 100ml NS 100 ML IV PRN (11:25)
[2022-05-04] MEDS ORDERED: diphenhydrAMINE 25mg capsule PO PRN (11:25)
[2022-05-04] MEDS: ipratropium/albuterol 3ml nebule NEB SCH ×2 (14:17→21:08)
[2022-05-04] MEDS ORDERED: AMIO200T61 PO (17:28)
[2022-05-04] MEDS: K and/or MAG REPLACEMENT MC SCH (19:37)
[2022-05-04] MEDS: furosemide 10 MG/1 ML 10ml inj IV SCH (20:14)
--- NOTE | 2022-05-04 20:19 | NUR ---
CALLED REPORT UP TO TELE. GAVE REPORT TO THE ACCEPTING NURSE.
[2022-05-04] MEDS: docusate sod 100mg capsule PO SCH (20:29)
[2022-05-04 21:00] VITALS: BP 111/64
[2022-05-05] VITALS (7 sets, daily range): BP systolic 94–109; BP diastolic 48–72
[2022-05-05] MEDS: ipratropium/albuterol 3ml nebule NEB SCH ×4 (02:55→20:18)
--- NOTE | 2022-05-05 06:15 | NUR ---
Patient in room PCU 3012. I have received report from Luis GRIER and had the opportunity to ask questions and assume patient care.Bedside report completed. Pt sleeping, Call light in reach. Will follow care of Pt with Haja JIMENEZ. Addendum: 05/05/22 at 0788 by Pastora Escobar RN Amended: Links added.
--- NOTE | 2022-05-05 06:32 | NUR ---
Patient in room PCU 3012A. I have received report from Luis GRIER and had the opportunity to ask questions and assume patient care. Bedside report given. Patient sleeping. No distress. CAll light within reach. Addendum: 05/05/22 at 0632 by Haja Gan LVN Amended: Links added.
[2022-05-05 07:19] LABS: BASOPHILS % (AUTO) 0.7 % (0-1); EOSINOPHILS % (AUTO) 0.4 % (0-6); HEMATOCRIT 31.4 % (42.0-52.0); HEMOGLOBIN 10.6 g/dl (14.0-17.9); LYMPHOCYTES # (AUTO) 0.7 X10'3 (1.1-4.8); LYMPHOCYTES % (AUTO) 10.5 % (21-51); MEAN CORPUSCULAR HEMOGLOBIN 34.3 PG (27.0-31.0); MEAN CORPUSCULAR HGB CONC 33.6 g/dL (33.0-36.5); MEAN CORPUSCULAR VOLUME 102.1 FL (78-98); MEAN PLATELET VOLUME 8.9 FL (7.4-10.4); MONOCYTES # (AUTO) 0.6 X10'3 (0-0.9); MONOCYTES % (AUTO) 9.8 % (2-12); NEUTROPHILS # (AUTO) 5.1 X10'3 (1.8-7.7); NEUTROPHILS % (AUTO) 78.6 % (42-75); PLATELET COUNT 158 X10'3 (140-440); RED BLOOD COUNT 3.08 X10'6 (4.70-6.10); RED CELL DISTRIBUTION WIDTH 18.7 % (11.5-14.5); WHITE BLOOD COUNT 6.5 X10'3 (4.5-11.0)
[2022-05-05] MEDS: docusate sod 100mg capsule PO SCH ×2 (07:46→20:14)
[2022-05-05] MEDS: K and/or MAG REPLACEMENT MC SCH ×2 (08:00→19:08)
[2022-05-05 08:34] LABS: ANISOCYTOSIS 3+; PLATELET ESTIMATE NORMAL; POIKILOCYTOSIS FEW
--- NOTE | 2022-05-05 09:58 | NUR ---
Message: 3012a [place] He is to receive lasix 40 iv bid. His SBP is 98 to 94. I have been holding this med. Parameter is hold for SBP below 100. Pastora DUNN
[2022-05-05 10:37] LABS: ALANINE AMINOTRANSFERASE 67 U/L (12-78); ALBUMIN 2.8 G/DL (3.4-5.0); ALBUMIN/GLOBULIN RATIO 0.8 (1.1-1.5); ALKALINE PHOSPHATASE 88 IU/L (46-116); ANION GAP 8 (8-16); ASPARTATE AMINO TRANSFERASE 78 U/L (10-37); BILIRUBIN,TOTAL 2.5 MG/DL (0.1-1.0); BLOOD UREA NITROGEN 27 MG/DL (7-18); BUN/CREATININE RATIO 22.7 (5.4-32.0); CALCIUM 8.6 MG/DL (8.5-10.1); CHLORIDE 102 MMOL/L (99-107); CREATININE 1.19 MG/DL (0.60-1.10); GLUCOSE 93 MG/DL (70-104); PHOSPHORUS 2.8 MG/DL (2.3-4.5); POTASSIUM 3.4 MMOL/L (3.5-5.1); SODIUM 139 MMOL/L (135-145); TOTAL CARBON DIOXIDE 29.5 MMOL/L (24-32); TOTAL PROTEIN 6.2 G/DL (6.4-8.2); eGFR 59 ML/MIN
[2022-05-05] MEDS: potassium Cl 20 mEq SR tablet PO PRN ×3 (10:46→20:23)
--- NOTE | 2022-05-05 10:52 | NUR ---
Dr. Stone notified Message: [id number]- Laube- Pt reconcile home meds. Patient reports he would like to take his daily routine meds. Janet Gan LVN. Transaction number: [id number]
[2022-05-05] MEDS: furosemide 10 MG/1 ML 10ml inj IV SCH ×2 (11:36→20:15)
--- NOTE | 2022-05-05 11:36 | NUR ---
Pt SBP 105 at this time administered a.m. Lasix dose of 40mg IV
[2022-05-05] MEDS ORDERED: spironolactone 25 MG tablet PO SCH ×2 (12:30→14:56)
[2022-05-05] MEDS ORDERED: warfarin 5mg tablet PO SCH (12:30)
--- NOTE | 2022-05-05 13:07 | NUR ---
Per Dr. Stone, Give Amiodarone 200mg x 1 tablet NOW. is at beside. Addendum: 05/05/22 at 1320 by Haja Gan LVN Per Pt, he reports SOB and tremors when taking Amiodarone. Notified.
[2022-05-05] MEDS ORDERED: amiodarone 200mg tablet PO ONE (13:10)
[2022-05-05] MEDS ORDERED: amiodarone 200mg tablet PO SCH (13:10)
--- NOTE | 2022-05-05 14:12 | NUR ---
Dr. Stone ordered Coumadin 5mg Now. Pharmacy refused to deliver until INR taken. INR drawn. Results called to pharmacy. Pharmacy notified Dr. Stone. Results were Coumadin will be given tonight at 2100hrs.
--- NOTE | 2022-05-05 17:57 | NUR ---
I have reviewed and agree with all interventions, assessments performed and documented by Haja JIMENEZ. Addendum: 05/05/22 at 1759 by Pastora Escobar RN Amended: Links added.
--- NOTE | 2022-05-05 18:20 | NUR ---
Problems reprioritized. Patient report given, questions answered & plan of care reviewed with Luis GRIER. Call light within reach. No distress noted. Bed in lowest position. Bedside report given. Addendum: 05/05/22 at 1821 by Haja Gan LVN Amended: Links added.
[2022-05-05] MEDS: metoprolol succinate 25mg (24-HOUR) SR. Tablet PO SCH (20:00)
[2022-05-05] MEDS: sacubitril/valsartan 24mg-26mg tablet PO SCH (20:14)
[2022-05-05] MEDS: amiodarone 200mg tablet PO SCH (20:14)
[2022-05-05] MEDS ORDERED: warfarin 5mg tablet PO ONE (21:00)
--- NOTE | 2022-05-05 22:22 | NUR ---
Pt had Lasix 40 mg IV at 2000 PM at that time BP was 109/72, now is 2224 PM BP is 84/48, charge nurse notified for Hold metoprolol 100 mg PO at [facility].
[2022-05-05] MEDS ORDERED: LORazepam 1 MG tablet PO PRN (23:00)
[2022-05-05] MEDS ORDERED: LORazepam 2 mg/ml vial IV PRN (23:00)
[2022-05-06] MEDS: thiamine 100mg tablet PO SCH ×2 (00:03→07:54)
[2022-05-06 02:00] VITALS: BP 94/53
[2022-05-06] MEDS: ipratropium/albuterol 3ml nebule NEB SCH ×2 (02:39→08:20)
[2022-05-06 06:31] LABS: BASOPHILS % (AUTO) 0.5 % (0-1); EOSINOPHILS # (AUTO) 0.1 X10'3 (0-0.9); EOSINOPHILS % (AUTO) 0.8 % (0-6); HEMATOCRIT 29.6 % (42.0-52.0); HEMOGLOBIN 10.2 g/dl (14.0-17.9); LYMPHOCYTES # (AUTO) 0.7 X10'3 (1.1-4.8); LYMPHOCYTES % (AUTO) 10.8 % (21-51); MEAN CORPUSCULAR HEMOGLOBIN 34.8 PG (27.0-31.0); MEAN CORPUSCULAR HGB CONC 34.4 g/dL (33.0-36.5); MEAN CORPUSCULAR VOLUME 101.3 FL (78-98); MEAN PLATELET VOLUME 8.7 FL (7.4-10.4); MONOCYTES # (AUTO) 0.8 X10'3 (0-0.9); NEUTROPHILS # (AUTO) 5.1 X10'3 (1.8-7.7); NEUTROPHILS % (AUTO) 75.9 % (42-75); PLATELET COUNT 169 X10'3 (140-440); RED BLOOD COUNT 2.92 X10'6 (4.70-6.10); RED CELL DISTRIBUTION WIDTH 18.5 % (11.5-14.5); WHITE BLOOD COUNT 6.7 X10'3 (4.5-11.0)
--- NOTE | 2022-05-06 06:42 | NUR ---
Bedside report is given to AM MARVEL Mckinnon.
[2022-05-06 06:53] LABS: ALANINE AMINOTRANSFERASE 54 U/L (12-78); ALBUMIN 2.8 G/DL (3.4-5.0); ALBUMIN/GLOBULIN RATIO 0.8 (1.1-1.5); ALKALINE PHOSPHATASE 96 IU/L (46-116); ANION GAP 7 (8-16); ASPARTATE AMINO TRANSFERASE 46 U/L (10-37); BILIRUBIN,TOTAL 1.4 MG/DL (0.1-1.0); BLOOD UREA NITROGEN 26 MG/DL (7-18); BUN/CREATININE RATIO 21.1 (5.4-32.0); CALCIUM 8.7 MG/DL (8.5-10.1); CHLORIDE 99 MMOL/L (99-107); CREATININE 1.23 MG/DL (0.60-1.10); GLUCOSE 108 MG/DL (70-104); MAGNESIUM 1.9 MG/DL (1.5-2.4); PHOSPHORUS 2.6 MG/DL (2.3-4.5); POTASSIUM 3.5 MMOL/L (3.5-5.1); SODIUM 137 MMOL/L (135-145); TOTAL CARBON DIOXIDE 30.8 MMOL/L (24-32); TOTAL PROTEIN 6.3 G/DL (6.4-8.2); eGFR 56 ML/MIN
[2022-05-06 07:00] VITALS: BP 90/41
[2022-05-06] MEDS: docusate sod 100mg capsule PO SCH (07:52)
[2022-05-06] MEDS: amiodarone 200mg tablet PO SCH (07:53)
[2022-05-06] MEDS: K and/or MAG REPLACEMENT MC SCH (08:00)
[2022-05-06] MEDS: metoprolol succinate 25mg (24-HOUR) SR. Tablet PO SCH (08:00)
[2022-05-06] MEDS: furosemide 10 MG/1 ML 10ml inj IV SCH (08:00)
[2022-05-06] MEDS ORDERED: atorvastatin 20mg tablet PO SCH (08:00)
[2022-05-06] MEDS: sacubitril/valsartan 24mg-26mg tablet PO SCH (08:00)
[2022-05-06 11:00] VITALS: BP 101/53
[2022-05-06] MEDS ORDERED: MULT-1085 PO (13:03)
[2022-05-06] MEDS ORDERED: THIA50TA10 PO (13:03)
[2022-05-06] MEDS ORDERED: FOLI1TAB27 PO (13:03)
[2022-05-06] MEDS ORDERED: ALBU6.7H14 INH (13:05)
[2022-05-06 15:00] VITALS: BP 101/56
--- NOTE | 2022-05-06 15:50 | NUR ---
Patient was DC to home with HH and PT. PIV was removed with cannula intact. RX were sent to [facility] in [place]. DC instructions and warning s/s were reviewed with and patient both verbalized understanding. Patient belongings were sent home with the patient and . Patient was alert, oriented, and appropriate at time of DC. All questions were answered. Patient was wheeled out the front and helped into the car.
[2022-05-06] MEDS ORDERED: warfarin 5mg tablet PO ONE (21:00)
[2022-05-10] MEDS ORDERED: folic acid 1mg tablet PO SCH (08:00)
--- NOTE | 2022-05-24 15:55 | NUR ---
Case Management DC follow up:Spoke with Patient via telephone.S/P Patient Reports: Denies: Acute/continuous CP, emergent SOB, resp distress, dyspnea, N/V, weakness, vertigo, syncope episodes, orthostatic hypotension.Verbalizes he is fatigued.Denies: SHAW, blurry vision, s/s of stroke/BE-FAST,dysphagia, dysuria, hematuria, retention,abdominal pain/distention, hematochezia, melena, unexplained bruising, bleeding, fever, chills.Verbalizes understanding of new Rx: why prescribed; continues/resumes current Rx as ordered.Verbalized understanding of s/s that warrant a 02-04/ER visit for further evaluation.Verbalized [facility] health nurse missed last visit because nurse was sick. Verbalized they haven not heard from the nurse since.I telephoned [facility] and returned call to Patient.I apprised Patient that the [facility] nurse will be out tomorrow.Spoke with Patient regarding recording daily weights,and being cognizant of fluid intake.Verbalizes follow up appointment with PCP 05/08/22, and has seen 05/10/22.Verbalizes the nurses, Doctors, and staff were excellent.Needs met, questions/concerns addressed at DC; no further questions/concerns regarding recent hospital stay and/or DC status at this time. Addendum: 05/24/22 at 1627 by Arianna Burrell RN Verbalized the bertin in the ER was too short, and his feet were cold.
== END 2022-05-06 15:49 | disposition home health service (06) | DRG 190 ==
LOC: ER 07:18 → ED HOLD 11:27 → EDBEDREQ 17:49 → PCU 3S 20:45
PROVIDERS: ADMIT Family Medicine; ATTEND Family Medicine
DX: J44.1 Chronic obstructive pulmonary disease with (acute) exacerbation (principal); N17.0 Acute kidney failure with tubular necrosis; I13.0 Hypertensive heart and chronic kidney disease with heart failure and stage 1 through stage 4 chronic kidney disease, or unspecified chronic kidney disease; E03.9 Hypothyroidism, unspecified; E78.5 Hyperlipidemia, unspecified; Z20.822 Contact with and (suspected) exposure to COVID-19; Z96.649 Presence of unspecified artificial hip joint; I49.5 Sick sinus syndrome; F10.90 Alcohol use, unspecified, uncomplicated; I48.91 Unspecified atrial fibrillation; I50.9 Heart failure, unspecified; J44.9 Chronic obstructive pulmonary disease, unspecified; N18.9 Chronic kidney disease, unspecified; Z79.01 Long term (current) use of anticoagulants; Z79.899 Other long term (current) drug therapy; Z87.891 Personal history of nicotine dependence; Z90.49 Acquired absence of other specified parts of digestive tract; Z95.810 Presence of automatic (implantable) cardiac defibrillator; Z88.8 Allergy status to other drugs, medicaments and biological substances; Z80.9 Family history of malignant neoplasm, unspecified
CPT/HCPCS: 36415; 71045; 80053; 83735; 83880; 84100; 84484; 85008; 85025; 85610; 87081; 87635; 93005; 94640; 94760; 96374; 97116; 97161; 97530; 99285; A4615; C9803; G0378; J1940

== ENCOUNTER 2023-06-07 23:54 | Inpatient (IN) | payer MEDICARE ==
[~2023-06-07] VITALS: Ht 193 cm; Wt 77.0 kg
[~2023-06-07 23:54] MED LIST changes: +ALBU6.7H14 INH; +AMI200T PO; -AMIO200T67 PO; +FOLI1TAB27 PO; +MULT-1085 PO; +THIA50TA10 PO
[2023-06-08] VITALS (9 sets, daily range): BP systolic 84–96; BP diastolic 58–63; PULSE 60–84; RESP 15–18; TEMP 97.6–98.5; O2SAT 96–100
[2023-06-08 00:41] LABS: ALANINE AMINOTRANSFERASE 13 U/L (12-78); ALBUMIN 2.8 G/DL (3.4-5.0); ALBUMIN/GLOBULIN RATIO 0.6 (1.1-1.5); ALKALINE PHOSPHATASE 169 IU/L (46-116); ANION GAP 10 (8-16); ASPARTATE AMINO TRANSFERASE 21 U/L (10-37); BILIRUBIN,TOTAL 2.1 MG/DL (0.1-1.0); BLOOD UREA NITROGEN 22 MG/DL (7-18); BUN/CREATININE RATIO 18.3 (10.0-20.0); CALCIUM 8.5 MG/DL (8.5-10.1); CHLORIDE 100 MMOL/L (99-107); GLUCOSE 163 MG/DL (70-104); POTASSIUM 3.8 MMOL/L (3.5-5.1); SODIUM 133 MMOL/L (135-145); TOTAL CARBON DIOXIDE 22.9 MMOL/L (24-32); TOTAL PROTEIN 7.4 G/DL (6.4-8.2); eCRCL 51 ML/MIN; eGFR 58 ML/MIN
[2023-06-08 00:45] LABS: BASOPHILS # (AUTO) 0.1 X10'3 (0-0.2); BASOPHILS % (AUTO) 0.9 % (0-1); EOSINOPHILS # (AUTO) 0.2 X10'3 (0-0.9); EOSINOPHILS % (AUTO) 2.3 % (0-6); HEMATOCRIT 35.6 % (42.0-52.0); HEMOGLOBIN 12.3 g/dl (14.0-17.9); LYMPHOCYTES # (AUTO) 0.7 X10'3 (1.1-4.8); LYMPHOCYTES % (AUTO) 9.7 % (21-51); MEAN CORPUSCULAR HEMOGLOBIN 36.3 PG (27.0-31.0); MEAN CORPUSCULAR HGB CONC 34.5 g/dL (33.0-36.5); MEAN CORPUSCULAR VOLUME 105.2 FL (78-98); MEAN PLATELET VOLUME 8.8 FL (7.4-10.4); MONOCYTES # (AUTO) 0.7 X10'3 (0-0.9); MONOCYTES % (AUTO) 8.9 % (2-12); NEUTROPHILS # (AUTO) 5.8 X10'3 (1.8-7.7); NEUTROPHILS % (AUTO) 78.2 % (42-75); PLATELET COUNT 220 X10'3 (140-440); RED BLOOD COUNT 3.39 X10'6 (4.70-6.10); RED CELL DISTRIBUTION WIDTH 16.2 % (11.5-14.5); WHITE BLOOD COUNT 7.4 X10'3 (4.5-11.0)
[2023-06-08 00:49] LABS: PRO BRAIN NATRIURETIC PEPTIDE 13404 PG/ML (0-450)
[2023-06-08] MEDS ORDERED: LidoCAINE 2% Topical Jelly 11mL syringe TOP ONE (01:00)
[2023-06-08] MEDS ORDERED: furosemide 10 MG/1 ML 10ml inj IV ONE (01:10)
[2023-06-08 01:47] LABS: BILIRUBIN,URINE SMALL (Neg); CLARITY,URINE CLEAR (Clear); COLOR,URINE AMBER (Yellow); GLUCOSE, URINE NEGATIVE (Neg); KETONES,URINE TRACE mg/dl (Neg); LEUKOCYTE ESTERASE ,URINE NEGATIVE (Neg); NITRITES, URINE NEGATIVE (Neg); OCCULT BLOOD,URINE NEGATIVE (Neg); PH,URINE 5.5 (4.8-8.0); PROTEIN,URINE NEGATIVE (Neg)
[2023-06-08 01:53] LABS: UA COLLECTION TYPE FOLEY CATH
[2023-06-08] MEDS ORDERED: ondansetron 4mg rapidly disintigrating tab PO PRN (02:20)
[2023-06-08] MEDS ORDERED: acetaminophen 325mg tablet PO PRN ×2 (02:20)
[2023-06-08] MEDS ORDERED: bisacodyl 10mg suppository rectal RC PRN (02:20)
[2023-06-08] MEDS ORDERED: ipratropium/albuterol 3ml nebule NEB PRN (02:20)
[2023-06-08] MEDS ORDERED: mag hydrox/Alum hydrox/simeth 30ml oral suspension PO PRN (02:20)
[2023-06-08] MEDS ORDERED: diphenhydrAMINE 25mg capsule PO PRN (02:20)
[2023-06-08] MEDS ORDERED: morphine 2 MG/ML inj. syringe IV PRN (02:20)
[2023-06-08] MEDS ORDERED: diphenhydrAMINE 50 mg/ml inj IV PRN (02:20)
[2023-06-08] MEDS ORDERED: acetaminophen 650mg rectal suppository RC PRN (02:20)
[2023-06-08] MEDS ORDERED: ondansetron/PF 4mg/2ml inj IV PRN (02:20)
[2023-06-08] MEDS ORDERED: normal saline 1000ml 1,000 ML IV SCH (02:20)
[2023-06-08] MEDS ORDERED: magnesium hydroxide 30ml (MOM) UD suspension PO PRN (02:20)
[2023-06-08] MEDS ORDERED: HYDROcodone/acetaminophen 5mg/325mg tablet PO PRN (02:20)
[2023-06-08 03:13] LABS: MAGNESIUM 1.8 MG/DL (1.5-2.4); PHOSPHORUS 3.5 MG/DL (2.3-4.5); THYROID STIMULATING HORMONE 0.24 ulU/ml (0.34-4.50)
[2023-06-08 03:50] LABS: APTT 35 SECONDS (22-32); D-DIMER 2.73 MG/L FEU (0-0.50); INR 2.4 INR; PROTHROMBIN TIME 24.8 SECONDS (9.0-12.0)
[2023-06-08] MEDS ORDERED: GABA300C PO (05:11)
[2023-06-08] MEDS ORDERED: TIOT4MIS2 INH (05:11)
[2023-06-08] MEDS ORDERED: CARV3.1244 PO ×2 (05:11→17:49)
[2023-06-08] MEDS: methylPREDNISolone sod succ 125mg/2ml vial IV SCH ×2 (08:04→20:37)
[2023-06-08] MEDS: docusate sod 100mg capsule PO SCH ×2 (08:06→20:38)
[2023-06-08] MEDS: azithromycin 250mg tablet PO SCH (08:08)
[2023-06-08] MEDS: furosemide 40mg/4ml inj IV SCH ×2 (08:30→20:38)
[2023-06-08] MEDS: multivitamins, therapeutics tablet PO SCH (09:31)
[2023-06-08] MEDS: ipratropium 0.5 MG/2.5ML nebule NEB SCH ×3 (10:10→21:18)
[2023-06-08] MEDS: carVEDilol 3.125mg tablet PO SCH (20:38)
[2023-06-08] MEDS: tamsulosin 0.4mg capsule PO SCH (20:39)
[2023-06-08] MEDS: gabapentin 300mg capsule PO SCH (20:39)
[2023-06-08] MEDS: temazepam 15mg capsule PO PRN (20:39)
[2023-06-08] MEDS ORDERED: warfarin 2.5mg tablet PO ONE (22:45)
[2023-06-09] VITALS (14 sets, daily range): BP systolic 90–100; BP diastolic 60–70; PULSE 74–98; RESP 12–22; TEMP 97–98.1; O2SAT 92–99
[2023-06-09] MEDS: ipratropium 0.5 MG/2.5ML nebule NEB SCH ×4 (03:00→20:35)
[2023-06-09 06:30] LABS: ALANINE AMINOTRANSFERASE 12 U/L (12-78); ALBUMIN 2.5 G/DL (3.4-5.0); ALBUMIN/GLOBULIN RATIO 0.6 (1.1-1.5); ALKALINE PHOSPHATASE 139 IU/L (46-116); ANION GAP 9 (8-16); ASPARTATE AMINO TRANSFERASE 22 U/L (10-37); BILIRUBIN,TOTAL 1.3 MG/DL (0.1-1.0); BLOOD UREA NITROGEN 30 MG/DL (7-18); BUN/CREATININE RATIO 26.3 (10.0-20.0); CALCIUM 8.6 MG/DL (8.5-10.1); CHLORIDE 100 MMOL/L (99-107); CREATININE 1.14 MG/DL (0.60-1.10); GLUCOSE 182 MG/DL (70-104); POTASSIUM 3.4 MMOL/L (3.5-5.1); SODIUM 135 MMOL/L (135-145); TOTAL CARBON DIOXIDE 26.2 MMOL/L (24-32); TOTAL PROTEIN 6.7 G/DL (6.4-8.2); eCRCL 53 ML/MIN; eGFR 61 ML/MIN
[2023-06-09 06:31] LABS: BASOPHILS % (AUTO) 0.1 % (0-1); EOSINOPHILS % (AUTO) 0 % (0-6); HEMATOCRIT 30.9 % (42.0-52.0); HEMOGLOBIN 10.8 g/dl (14.0-17.9); LYMPHOCYTES # (AUTO) 0.4 X10'3 (1.1-4.8); LYMPHOCYTES % (AUTO) 7.1 % (21-51); MEAN CORPUSCULAR HEMOGLOBIN 36.3 PG (27.0-31.0); MEAN CORPUSCULAR HGB CONC 34.9 g/dL (33.0-36.5); MONOCYTES # (AUTO) 0.1 X10'3 (0-0.9); MONOCYTES % (AUTO) 2.4 % (2-12); NEUTROPHILS # (AUTO) 4.9 X10'3 (1.8-7.7); NEUTROPHILS % (AUTO) 90.4 % (42-75); PLATELET COUNT 162 X10'3 (140-440); RED BLOOD COUNT 2.98 X10'6 (4.70-6.10); RED CELL DISTRIBUTION WIDTH 15.7 % (11.5-14.5); WHITE BLOOD COUNT 5.4 X10'3 (4.5-11.0)
[2023-06-09 07:44] LABS: PROTHROMBIN TIME 20.5 SECONDS (9.0-12.0)
[2023-06-09] MEDS: furosemide 40mg/4ml inj IV SCH ×3 (08:00→22:12)
[2023-06-09] MEDS: carVEDilol 3.125mg tablet PO SCH ×2 (08:00→22:13)
[2023-06-09] MEDS ORDERED: magnesium Cl slow-release 64mg tablet PO PRN (08:50)
[2023-06-09] MEDS ORDERED: magnesium 4gm in 100ml NS 100 ML IV PRN (08:50)
[2023-06-09] MEDS ORDERED: potassium Cl 40MEQ/1/2NS 520ml 520 ML IV PRN (08:50)
[2023-06-09] MEDS ORDERED: potassium Cl 20 mEq SR tablet PO PRN (08:50)
[2023-06-09] MEDS ORDERED: magnesium 2GM in 50ml NS 50 ML IV PRN (08:50)
[2023-06-09] MEDS: methylPREDNISolone sod succ 125mg/2ml vial IV SCH ×2 (09:09→20:00)
[2023-06-09] MEDS: azithromycin 250mg tablet PO SCH (09:31)
[2023-06-09] MEDS: docusate sod 100mg capsule PO SCH ×2 (09:31→22:10)
[2023-06-09] MEDS: multivitamins, therapeutics tablet PO SCH (09:31)
[2023-06-09] MEDS: atorvastatin 20mg tablet PO SCH (09:32)
[2023-06-09] MEDS: potassium Cl 20 mEq SR tablet PO PRN ×3 (09:32→17:52)
[2023-06-09] MEDS: magnesium oxide 400mg tablet PO SCH ×2 (09:32→17:52)
[2023-06-09 11:41] LABS: FREE T4 (FREE THYROXINE) 1.44 NG/DL (0.73-1.40)
[2023-06-09] MEDS ORDERED: VALACYCLOVIR (12:54)
[2023-06-09] MEDS ORDERED: FURO20TA4 PO (12:54)
[2023-06-09] MEDS ORDERED: ATOR20TA66 PO (12:54)
[2023-06-09] MEDS ORDERED: GABA300C PO (12:54)
[2023-06-09] MEDS: LACTOSE-REDUCED FOOD 237ML LIQUID PO SCH (18:00)
[2023-06-09] MEDS: K and/or MAG REPLACEMENT MC SCH (20:00)
[2023-06-09] MEDS ORDERED: warfarin 5mg tablet PO SCH (21:00)
[2023-06-09] MEDS ORDERED: warfarin 5mg tablet PO ONE (21:00)
[2023-06-09] MEDS: tamsulosin 0.4mg capsule PO SCH (22:09)
[2023-06-09] MEDS: gabapentin 300mg capsule PO SCH (22:11)
[2023-06-09] MEDS: temazepam 15mg capsule PO PRN (22:49)
[2023-06-10] VITALS (14 sets, daily range): BP systolic 93–113; BP diastolic 58–75; PULSE 73–97; RESP 14–19; TEMP 97.1–98.3; O2SAT 94–100
[2023-06-10] MEDS: ipratropium 0.5 MG/2.5ML nebule NEB SCH ×4 (02:43→20:22)
[2023-06-10 07:51] LABS: BASOPHILS % (AUTO) 0 % (0-1); EOSINOPHILS % (AUTO) 0 % (0-6); HEMOGLOBIN 10.3 g/dl (14.0-17.9); LYMPHOCYTES # (AUTO) 0.3 X10'3 (1.1-4.8); LYMPHOCYTES % (AUTO) 2.3 % (21-51); MEAN CORPUSCULAR HEMOGLOBIN 36.2 PG (27.0-31.0); MEAN CORPUSCULAR HGB CONC 34.3 g/dL (33.0-36.5); MEAN CORPUSCULAR VOLUME 105.5 FL (78-98); MEAN PLATELET VOLUME 8.9 FL (7.4-10.4); MONOCYTES # (AUTO) 0.3 X10'3 (0-0.9); MONOCYTES % (AUTO) 2.5 % (2-12); NEUTROPHILS # (AUTO) 10.7 X10'3 (1.8-7.7); NEUTROPHILS % (AUTO) 95.2 % (42-75); PLATELET COUNT 168 X10'3 (140-440); RED BLOOD COUNT 2.85 X10'6 (4.70-6.10); WHITE BLOOD COUNT 11.2 X10'3 (4.5-11.0)
[2023-06-10] MEDS: carVEDilol 3.125mg tablet PO SCH ×2 (08:00→21:28)
[2023-06-10] MEDS: K and/or MAG REPLACEMENT MC SCH ×2 (08:00→20:00)
[2023-06-10 08:02] LABS: INR 3.6 INR; PROTHROMBIN TIME 35.6 SECONDS (9.0-12.0)
[2023-06-10 08:06] LABS: ALANINE AMINOTRANSFERASE 12 U/L (12-78); ALBUMIN 2.4 G/DL (3.4-5.0); ALBUMIN/GLOBULIN RATIO 0.6 (1.1-1.5); ALKALINE PHOSPHATASE 134 IU/L (46-116); ANION GAP 7 (8-16); ASPARTATE AMINO TRANSFERASE 17 U/L (10-37); BILIRUBIN,TOTAL 0.8 MG/DL (0.1-1.0); BLOOD UREA NITROGEN 36 MG/DL (7-18); BUN/CREATININE RATIO 31.6 (10.0-20.0); CALCIUM 8.4 MG/DL (8.5-10.1); CHLORIDE 100 MMOL/L (99-107); CHOL/HDL RATIO 2.1 (0.00-4.99); CHOLESTEROL 108 MG/DL (0-200); CREATININE 1.14 MG/DL (0.60-1.10); GLUCOSE 165 MG/DL (70-104); HDL CHOLESTEROL 51 MG/DL (35-60); LDL CHOLESTEROL 39 MG/DL (50-100); SODIUM 133 MMOL/L (135-145); TOTAL CARBON DIOXIDE 25.7 MMOL/L (24-32); TOTAL PROTEIN 6.6 G/DL (6.4-8.2); TRIGLYCERIDES 43 MG/DL (20-135); eCRCL 53 ML/MIN; eGFR 61 ML/MIN
[2023-06-10] MEDS: methylPREDNISolone sod succ 125mg/2ml vial IV SCH ×2 (08:47→21:27)
[2023-06-10] MEDS: furosemide 40mg/4ml inj IV SCH ×2 (08:48→21:28)
[2023-06-10] MEDS: magnesium oxide 400mg tablet PO SCH ×3 (08:49→17:24)
[2023-06-10] MEDS: multivitamins, therapeutics tablet PO SCH (08:49)
[2023-06-10] MEDS: azithromycin 250mg tablet PO SCH (08:49)
[2023-06-10] MEDS: docusate sod 100mg capsule PO SCH ×2 (08:49→21:32)
[2023-06-10] MEDS: LACTOSE-REDUCED FOOD 237ML LIQUID PO SCH ×3 (08:50→18:49)
[2023-06-10] MEDS: atorvastatin 20mg tablet PO SCH (08:50)
[2023-06-10] MEDS ORDERED: VANCOMYCIN LEVEL PO ONE (21:00)
[2023-06-10] MEDS: temazepam 15mg capsule PO PRN (21:28)
[2023-06-10] MEDS: gabapentin 300mg capsule PO SCH (21:28)
[2023-06-10] MEDS: tamsulosin 0.4mg capsule PO SCH (21:28)
[2023-06-11] VITALS (10 sets, daily range): BP systolic 88–102; BP diastolic 59–67; PULSE 67–109; RESP 14–19; TEMP 97.5–98.3; O2SAT 94–98
[2023-06-11] MEDS: ipratropium 0.5 MG/2.5ML nebule NEB SCH ×2 (02:55→08:36)
[2023-06-11 07:00] LABS: BASOPHILS % (AUTO) 0.1 % (0-1); EOSINOPHILS % (AUTO) 0 % (0-6); HEMATOCRIT 29.1 % (42.0-52.0); HEMOGLOBIN 10.1 g/dl (14.0-17.9); LYMPHOCYTES # (AUTO) 0.4 X10'3 (1.1-4.8); LYMPHOCYTES % (AUTO) 3.3 % (21-51); MEAN CORPUSCULAR HGB CONC 34.6 g/dL (33.0-36.5); MEAN CORPUSCULAR VOLUME 103.9 FL (78-98); MEAN PLATELET VOLUME 8.7 FL (7.4-10.4); MONOCYTES # (AUTO) 0.5 X10'3 (0-0.9); MONOCYTES % (AUTO) 4.8 % (2-12); NEUTROPHILS % (AUTO) 91.8 % (42-75); PLATELET COUNT 172 X10'3 (140-440); RED CELL DISTRIBUTION WIDTH 16.6 % (11.5-14.5); WHITE BLOOD COUNT 10.9 X10'3 (4.5-11.0)
[2023-06-11 07:13] LABS: INR 3.8 INR; PROTHROMBIN TIME 37.6 SECONDS (9.0-12.0)
[2023-06-11 07:27] LABS: ALANINE AMINOTRANSFERASE 18 U/L (12-78); ALBUMIN 2.4 G/DL (3.4-5.0); ALBUMIN/GLOBULIN RATIO 0.6 (1.1-1.5); ALKALINE PHOSPHATASE 137 IU/L (46-116); ANION GAP 6 (8-16); ASPARTATE AMINO TRANSFERASE 22 U/L (10-37); BILIRUBIN,TOTAL 0.7 MG/DL (0.1-1.0); BLOOD UREA NITROGEN 48 MG/DL (7-18); BUN/CREATININE RATIO 40.7 (10.0-20.0); CALCIUM 8.6 MG/DL (8.5-10.1); CHLORIDE 99 MMOL/L (99-107); CREATININE 1.18 MG/DL (0.60-1.10); GLUCOSE 143 MG/DL (70-104); SODIUM 132 MMOL/L (135-145); TOTAL CARBON DIOXIDE 26.8 MMOL/L (24-32); TOTAL PROTEIN 6.3 G/DL (6.4-8.2); eCRCL 52 ML/MIN; eGFR 59 ML/MIN
[2023-06-11] MEDS ORDERED: lisinopril 2.5mg tablet PO SCH (08:00)
[2023-06-11] MEDS: K and/or MAG REPLACEMENT MC SCH (08:00)
[2023-06-11] MEDS: furosemide 40mg/4ml inj IV SCH (08:20)
[2023-06-11] MEDS: methylPREDNISolone sod succ 125mg/2ml vial IV SCH (08:20)
[2023-06-11] MEDS: magnesium oxide 400mg tablet PO SCH ×2 (08:26)
[2023-06-11] MEDS: atorvastatin 20mg tablet PO SCH (08:26)
[2023-06-11] MEDS: azithromycin 250mg tablet PO SCH (08:26)
[2023-06-11] MEDS: docusate sod 100mg capsule PO SCH (08:27)
[2023-06-11] MEDS: carVEDilol 3.125mg tablet PO SCH (08:27)
[2023-06-11] MEDS: LACTOSE-REDUCED FOOD 237ML LIQUID PO SCH ×2 (08:27→13:00)
[2023-06-11] MEDS: multivitamins, therapeutics tablet PO SCH (08:27)
== END 2023-06-11 15:05 | DRG 291 ==
LOC: ER 23:55 → ED HOLD 06-08 02:24 → PCU 3S 06-08 11:35
PROVIDERS: ADMIT Family Medicine; ATTEND Internal Medicine
DX: I13.0 Hypertensive heart and chronic kidney disease with heart failure and stage 1 through stage 4 chronic kidney disease, or unspecified chronic kidney disease (principal); I50.23 Acute on chronic systolic (congestive) heart failure; J96.01 Acute respiratory failure with hypoxia; N17.0 Acute kidney failure with tubular necrosis; J44.1 Chronic obstructive pulmonary disease with (acute) exacerbation; D64.9 Anemia, unspecified; E03.9 Hypothyroidism, unspecified; E78.5 Hyperlipidemia, unspecified; E86.1 Hypovolemia; E88.09 Other disorders of plasma-protein metabolism, not elsewhere classified; F10.21 Alcohol dependence, in remission; E05.90 Thyrotoxicosis, unspecified without thyrotoxic crisis or storm; I27.20 Pulmonary hypertension, unspecified; I48.91 Unspecified atrial fibrillation; K74.60 Unspecified cirrhosis of liver; N18.9 Chronic kidney disease, unspecified; Z79.01 Long term (current) use of anticoagulants; Z90.49 Acquired absence of other specified parts of digestive tract; Z95.0 Presence of cardiac pacemaker; Z88.8 Allergy status to other drugs, medicaments and biological substances; Z79.899 Other long term (current) drug therapy
CPT/HCPCS: 36415; 71045; 80053; 80061; 81003; 83605; 83735; 83880; 83930; 84100; 84439; 84443; 84484; 85025; 85379; 85610; 85730; 87040; 87081; 93005; 93308; 94640; 94760; 96374; 99285; A4314; A6449; G0378; J1940; J2930; J7030

== ENCOUNTER 2023-07-25 02:58 | Observation (INO) | payer MEDICARE ==
[~2023-07-25] VITALS: Ht 193 cm; Wt 72.7 kg
[2023-07-25] VITALS (8 sets, daily range): BP systolic 113; BP diastolic 64; PULSE 65–100; RESP 17–24; TEMP 97.5; O2SAT 91–99
[~2023-07-25 02:58] MED LIST changes: -ALBU6.7H14 INH; -AMI200T PO; +CARV3.1244 PO; -FOLI1TAB27 PO; +FURO20TA4 PO; -FURO40TA4 PO; +GABA300C PO; +IPRA3AMP9 NEB; -METO-411 PO; -MULT-1085 PO; -SACU1TAB PO; -SPIR25TA5 PO; -THIA50TA10 PO
[2023-07-25 04:59] LABS: BASOPHILS # (AUTO) 0.1 X10'3 (0-0.2); BASOPHILS % (AUTO) 0.4 % (0-1); EOSINOPHILS % (AUTO) 0.1 % (0-6); HEMATOCRIT 36.6 % (42.0-52.0); HEMOGLOBIN 12.5 g/dl (14.0-17.9); LYMPHOCYTES # (AUTO) 0.6 X10'3 (1.1-4.8); LYMPHOCYTES % (AUTO) 4.2 % (21-51); MEAN CORPUSCULAR HEMOGLOBIN 35.1 PG (27.0-31.0); MEAN CORPUSCULAR HGB CONC 34.1 g/dL (33.0-36.5); MEAN CORPUSCULAR VOLUME 102.8 FL (78-98); MEAN PLATELET VOLUME 9.7 FL (7.4-10.4); MONOCYTES # (AUTO) 1.2 X10'3 (0-0.9); MONOCYTES % (AUTO) 7.5 % (2-12); NEUTROPHILS # (AUTO) 13.5 X10'3 (1.8-7.7); NEUTROPHILS % (AUTO) 87.8 % (42-75); PLATELET COUNT 235 X10'3 (140-440); RED BLOOD COUNT 3.56 X10'6 (4.70-6.10); RED CELL DISTRIBUTION WIDTH 15.9 % (11.5-14.5); WHITE BLOOD COUNT 15.4 X10'3 (4.5-11.0)
[2023-07-25 05:03] LABS: ALANINE AMINOTRANSFERASE 28 U/L (12-78); ALBUMIN 3.2 G/DL (3.4-5.0); ALBUMIN/GLOBULIN RATIO 0.7 (1.1-1.5); ALKALINE PHOSPHATASE 136 IU/L (46-116); ANION GAP 13 (8-16); BILIRUBIN,TOTAL 2.5 MG/DL (0.1-1.0); BLOOD UREA NITROGEN 22 MG/DL (7-18); BUN/CREATININE RATIO 20.8 (10.0-20.0); CALCIUM 8.8 MG/DL (8.5-10.1); CHLORIDE 96 MMOL/L (99-107); CREATININE 1.06 MG/DL (0.60-1.10); GLUCOSE 124 MG/DL (70-104); SODIUM 133 MMOL/L (135-145); TOTAL CARBON DIOXIDE 24.5 MMOL/L (24-32); TOTAL PROTEIN 7.5 G/DL (6.4-8.2); eCRCL 54 ML/MIN; eGFR 67 ML/MIN
[2023-07-25 05:11] LABS: PRO BRAIN NATRIURETIC PEPTIDE 5409 PG/ML (0-450)
[2023-07-25 05:15] LABS: ASPARTATE AMINO TRANSFERASE 37 U/L (10-37); POTASSIUM 4.1 MMOL/L (3.5-5.1)
[2023-07-25 05:53] LABS: BILIRUBIN,DIRECT 0.7 MG/DL (0-0.3)
[2023-07-25] MEDS: methylPREDNISolone sod succ 125mg/2ml vial IV STA (06:43)
[2023-07-25] MEDS: ipratropium 0.5 MG/2.5ML nebule IH ONE (06:47)
[2023-07-25] MEDS: albuterol 2.5 MG/3 ML nebule NEB ONE (06:47)
[2023-07-25] MEDS ORDERED: potassium Cl 20 mEq SR tablet PO PRN ×2 (07:15)
[2023-07-25] MEDS ORDERED: magnesium hydroxide 30ml (MOM) UD suspension PO PRN (07:15)
[2023-07-25] MEDS ORDERED: acetaminophen 325mg tablet PO PRN ×2 (07:15)
[2023-07-25] MEDS ORDERED: magnesium 2GM in 50ml NS 50 ML IV PRN (07:15)
[2023-07-25] MEDS ORDERED: mag hydrox/Alum hydrox/simeth 30ml oral suspension PO PRN (07:15)
[2023-07-25] MEDS ORDERED: magnesium 4gm in 100ml NS 100 ML IV PRN (07:15)
[2023-07-25] MEDS ORDERED: magnesium Cl slow-release 64mg tablet PO PRN (07:15)
[2023-07-25] MEDS ORDERED: potassium Cl 40MEQ/1/2NS 520ml 520 ML IV PRN (07:15)
[2023-07-25] MEDS ORDERED: ondansetron/PF 4mg/2ml inj IV PRN (07:15)
[2023-07-25] MEDS: methylPREDNISolone sod succ 125mg/2ml vial IV SCH (07:31)
[2023-07-25] MEDS: docusate sod 100mg capsule PO SCH (07:31)
[2023-07-25] MEDS: albuterol 2.5 MG/3 ML nebule NEB SCH (08:00)
[2023-07-25] MEDS: CefTRIAXone 2gm/D5W 50ml BAG 50 ML IV SCH (08:00)
[2023-07-25 08:15] LABS: ABG BASE EXCESS -0.2 mmol/L (-2.0-2.0); ABG HCO3 22.2 mmol/L (22.0-26.0); ABG OXYGEN SATURATION 94.8 % (94-97); ABG PH (T) 7.499 (7.340-7.440); ABG PO2 (T) 71.4 mmHg (75.0-100.0); ALLEN'S TEST POSITIVE; FCOHb 0.7 % (0.0-3.9); FHHb 5.1 % (0.0-5.0); FLOW 1 L/min; FMetHb 0.3 % (0.0-1.5); FO2Hb 93.9 % (94-97); MODE NASAL CANNULA; PATIENT TEMPERATURE 36.4; TOTAL HEMOGLOBIN 12.7 G/dl (14.0-17.9)
[2023-07-25] MEDS: heparin, porcine 5000 units/ml vial SQ SCH (08:39)
[2023-07-25] MEDS ORDERED: LEVO-65 PO (16:52)
[2023-07-25 17:10] LABS: BASOPHILS % (AUTO) 0 % (0-1); EOSINOPHILS % (AUTO) 0 % (0-6); HEMATOCRIT 33.9 % (42.0-52.0); HEMOGLOBIN 11.7 g/dl (14.0-17.9); LYMPHOCYTES # (AUTO) 0.3 X10'3 (1.1-4.8); LYMPHOCYTES % (AUTO) 2.6 % (21-51); MEAN CORPUSCULAR HEMOGLOBIN 35.1 PG (27.0-31.0); MEAN CORPUSCULAR HGB CONC 34.6 g/dL (33.0-36.5); MEAN CORPUSCULAR VOLUME 101.6 FL (78-98); MEAN PLATELET VOLUME 8.8 FL (7.4-10.4); MONOCYTES # (AUTO) 0.1 X10'3 (0-0.9); MONOCYTES % (AUTO) 0.6 % (2-12); NEUTROPHILS # (AUTO) 9.9 X10'3 (1.8-7.7); NEUTROPHILS % (AUTO) 96.8 % (42-75); PLATELET COUNT 203 X10'3 (140-440); RED BLOOD COUNT 3.33 X10'6 (4.70-6.10); RED CELL DISTRIBUTION WIDTH 15.5 % (11.5-14.5); WHITE BLOOD COUNT 10.3 X10'3 (4.5-11.0)
== END 2023-07-25 20:12 | disposition home or self-care (01) ==
LOC: ER 02:58 → ED HOLD 07:15
PROVIDERS: ADMIT Internal Medicine; ATTEND Internal Medicine
DX: J43.2 Centrilobular emphysema (principal); I48.20 Chronic atrial fibrillation, unspecified; I13.0 Hypertensive heart and chronic kidney disease with heart failure and stage 1 through stage 4 chronic kidney disease, or unspecified chronic kidney disease; I50.22 Chronic systolic (congestive) heart failure; N18.9 Chronic kidney disease, unspecified; E03.9 Hypothyroidism, unspecified; E78.5 Hyperlipidemia, unspecified; J98.11 Atelectasis; Z90.49 Acquired absence of other specified parts of digestive tract; Z95.0 Presence of cardiac pacemaker; Z79.899 Other long term (current) drug therapy
CPT/HCPCS: 36415; 36600; 71045; 71250; 80048; 80076; 82803; 83880; 84145; 84484; 85018; 85025; 85651; 87040; 87077; 87186; 93005; 94640; 94760; 97161; 97530; A4615; G0378; J0696; J1644; J2930

== ENCOUNTER 2023-07-27 16:23 | Inpatient (IN) | payer MEDICARE ==
[~2023-07-27] VITALS: Ht 193 cm; Wt 65.6 kg
[~2023-07-27 16:23] MED LIST changes: +LEVO-65 PO
[2023-07-27 17:07] LABS: BASOPHILS % (AUTO) 0.1 % (0-1); EOSINOPHILS % (AUTO) 0.1 % (0-6); HEMATOCRIT 34.9 % (42.0-52.0); HEMOGLOBIN 11.6 g/dl (14.0-17.9); LYMPHOCYTES % (AUTO) 5.8 % (21-51); MEAN CORPUSCULAR HEMOGLOBIN 34.7 PG (27.0-31.0); MEAN CORPUSCULAR HGB CONC 33.4 g/dL (33.0-36.5); MEAN CORPUSCULAR VOLUME 103.8 FL (78-98); MEAN PLATELET VOLUME 9.2 FL (7.4-10.4); MONOCYTES # (AUTO) 1.1 X10'3 (0-0.9); MONOCYTES % (AUTO) 6.4 % (2-12); NEUTROPHILS # (AUTO) 15.4 X10'3 (1.8-7.7); NEUTROPHILS % (AUTO) 87.6 % (42-75); PLATELET COUNT 200 X10'3 (140-440); RED BLOOD COUNT 3.36 X10'6 (4.70-6.10); RED CELL DISTRIBUTION WIDTH 16.3 % (11.5-14.5); WHITE BLOOD COUNT 17.5 X10'3 (4.5-11.0)
[2023-07-27] MEDS: ipratropium/albuterol 3ml nebule NEB PRN (17:14)
[2023-07-27 17:18] VITALS: PULSE 143; RESP 22; O2SAT 95
[2023-07-27 17:21] LABS: ALBUMIN 2.9 G/DL (3.4-5.0); ANION GAP 9 (8-16); BLOOD UREA NITROGEN 37 MG/DL (7-18); CALCIUM 7.8 MG/DL (8.5-10.1); CHLORIDE 98 MMOL/L (99-107); CREATININE 1.12 MG/DL (0.60-1.10); GLUCOSE 158 MG/DL (70-104); MAGNESIUM 1.7 MG/DL (1.5-2.4); POTASSIUM 3.4 MMOL/L (3.5-5.1); SODIUM 132 MMOL/L (135-145); TOTAL CARBON DIOXIDE 25.1 MMOL/L (24-32); eCRCL 51 ML/MIN; eGFR 63 ML/MIN
[2023-07-27 17:23] VITALS: PULSE 143; RESP 22; O2SAT 91
[2023-07-27 17:26] LABS: PRO BRAIN NATRIURETIC PEPTIDE 10635 PG/ML (0-450)
[2023-07-27] MEDS: methylPREDNISolone sod succ 125mg/2ml vial IV ONE (17:28)
[2023-07-27] MEDS: magnesium 2GM in 50ml NS 50 ML IV ONE (17:28)
[2023-07-27] MEDS: cefepime 2g/NS 100ml ADVANTAGE 100 ML IV SCH (19:41)
[2023-07-27] MEDS: normal saline 1000ML IV soln IVB ONE (20:12)
[2023-07-27] MEDS: diltiazem 5mg/ml 5ml inj. IV ONE ×2 (20:54→21:06)
[2023-07-27] MEDS: diltiazem 30mg tablet PO ONE ×2 (21:07→21:28)
[2023-07-27] MEDS ORDERED: magnesium 4gm in 100ml NS 100 ML IV PRN (21:35)
[2023-07-27] MEDS ORDERED: potassium Cl 40MEQ/1/2NS 520ml 520 ML IV PRN (21:35)
[2023-07-27] MEDS ORDERED: potassium Cl 20 mEq SR tablet PO PRN ×2 (21:35)
[2023-07-27] MEDS ORDERED: mag hydrox/Alum hydrox/simeth 30ml oral suspension PO PRN (21:35)
[2023-07-27] MEDS ORDERED: magnesium Cl slow-release 64mg tablet PO PRN (21:35)
[2023-07-27] MEDS ORDERED: magnesium 2GM in 50ml NS 50 ML IV PRN (21:35)
[2023-07-27] MEDS ORDERED: ondansetron/PF 4mg/2ml inj IV PRN (21:35)
[2023-07-27 22:29] LABS: PROTHROMBIN TIME 45.1 SECONDS (9.0-12.0)
[2023-07-27 22:58] VITALS: BP 105/71; PULSE 89; RESP 21; TEMP 97.6
[2023-07-27 23:07] LABS: INR 4.6 INR
[2023-07-27 23:29] LABS: BILIRUBIN,URINE NEGATIVE (Neg); CLARITY,URINE CLEAR (Clear); COLOR,URINE YELLOW (Yellow); GLUCOSE, URINE NEGATIVE (Neg); KETONES,URINE NEGATIVE (Neg); LEUKOCYTE ESTERASE ,URINE NEGATIVE (Neg); NITRITES, URINE NEGATIVE (Neg); OCCULT BLOOD,URINE NEGATIVE (Neg); PROTEIN,URINE NEGATIVE (Neg); UROBILINOGEN,URINE 0.2 E.U/dL (0.2-1.0)
[2023-07-27 23:34] LABS: UA COLLECTION TYPE NON-SPECIFIED
[2023-07-28] VITALS (9 sets, daily range): BP systolic 99–110; BP diastolic 66–71; PULSE 66–95; RESP 15–20; TEMP 97–98.6; O2SAT 95–100
[2023-07-28 07:24] LABS: INR 2.9 INR; PROTHROMBIN TIME 28.7 SECONDS (9.0-12.0)
[2023-07-28 07:30] LABS: ALANINE AMINOTRANSFERASE 53 U/L (12-78); ALBUMIN 2.7 G/DL (3.4-5.0); ALBUMIN/GLOBULIN RATIO 0.8 (1.1-1.5); ALKALINE PHOSPHATASE 115 IU/L (46-116); ANION GAP 11 (8-16); ASPARTATE AMINO TRANSFERASE 61 U/L (10-37); BILIRUBIN,TOTAL 1.7 MG/DL (0.1-1.0); BLOOD UREA NITROGEN 37 MG/DL (7-18); BUN/CREATININE RATIO 36.3 (10.0-20.0); CHLORIDE 98 MMOL/L (99-107); CREATININE 1.02 MG/DL (0.60-1.10); GLUCOSE 152 MG/DL (70-104); MAGNESIUM 2.1 MG/DL (1.5-2.4); POTASSIUM 3.8 MMOL/L (3.5-5.1); SODIUM 133 MMOL/L (135-145); TOTAL CARBON DIOXIDE 23.9 MMOL/L (24-32); TOTAL PROTEIN 6.1 G/DL (6.4-8.2); eCRCL 56 ML/MIN; eGFR 70 ML/MIN
[2023-07-28 07:34] LABS: BASOPHILS % (AUTO) 0 % (0-1); EOSINOPHILS % (AUTO) 0 % (0-6); HEMATOCRIT 33.7 % (42.0-52.0); HEMOGLOBIN 11.3 g/dl (14.0-17.9); LYMPHOCYTES # (AUTO) 0.4 X10'3 (1.1-4.8); LYMPHOCYTES % (AUTO) 2.5 % (21-51); MEAN CORPUSCULAR HEMOGLOBIN 34.5 PG (27.0-31.0); MEAN CORPUSCULAR HGB CONC 33.4 g/dL (33.0-36.5); MEAN CORPUSCULAR VOLUME 103.2 FL (78-98); MEAN PLATELET VOLUME 9.5 FL (7.4-10.4); MONOCYTES # (AUTO) 0.3 X10'3 (0-0.9); MONOCYTES % (AUTO) 1.8 % (2-12); NEUTROPHILS # (AUTO) 15.3 X10'3 (1.8-7.7); NEUTROPHILS % (AUTO) 95.7 % (42-75); PLATELET COUNT 167 X10'3 (140-440); RED BLOOD COUNT 3.26 X10'6 (4.70-6.10); RED CELL DISTRIBUTION WIDTH 16.5 % (11.5-14.5); WHITE BLOOD COUNT 15.9 X10'3 (4.5-11.0)
[2023-07-28] MEDS: vancomycin/NS 1 GM ADD-VANTAGE 250 ML IV SCH (07:51)
[2023-07-28] MEDS: carVEDilol 3.125mg tablet PO SCH (08:00)
[2023-07-28] MEDS: docusate sod 100mg capsule PO SCH (08:04)
[2023-07-28] MEDS: cefepime 2g/NS 100ml ADVANTAGE 100 ML IV SCH (08:04)
[2023-07-28] MEDS: K and/or MAG REPLACEMENT MC SCH (08:07)
[2023-07-28] MEDS: LORazepam 0.5 MG tablet PO PRN (16:07)
[2023-07-28] MEDS: lactose-reduced food (Ensure Enlive) - 237ml bottle PO SCH (18:00)
[2023-07-28] MEDS: guaiFENesin/DM 10ml UD oral syrup PO PRN (18:02)
[2023-07-28] MEDS ORDERED: ipratropium/albuterol 3ml nebule NEB PRN (18:55)
[2023-07-28] MEDS: dronabinol 2.5mg capsule PO SCH (20:00)
[2023-07-28] MEDS: ipratropium/albuterol 3ml nebule NEB SCH (20:23)
[2023-07-28] MEDS: warfarin 1mg tablet PO ONE (21:10)
[2023-07-28] MEDS: furosemide 20 MG/2 ML vial IV SCH (21:12)
[2023-07-28] MEDS: methylPREDNISolone sod succ 125mg/2ml vial IV SCH (21:13)
[2023-07-28] MEDS: diltiazem SR 60mg capsule (twice daily) PO SCH (21:17)
[2023-07-28] MEDS: heparin, porcine 5000 units/ml vial SQ SCH (23:15)
[2023-07-29] VITALS (14 sets, daily range): BP systolic 96–171; BP diastolic 68–72; PULSE 73–116; RESP 15–20; TEMP 96.8–97.7; O2SAT 90–98
[2023-07-29 07:13] LABS: BASOPHILS % (AUTO) 0.1 % (0-1); EOSINOPHILS % (AUTO) 0 % (0-6); HEMATOCRIT 35.5 % (42.0-52.0); HEMOGLOBIN 11.8 g/dl (14.0-17.9); LYMPHOCYTES # (AUTO) 0.4 X10'3 (1.1-4.8); LYMPHOCYTES % (AUTO) 2.9 % (21-51); MEAN CORPUSCULAR HEMOGLOBIN 34.5 PG (27.0-31.0); MEAN CORPUSCULAR HGB CONC 33.4 g/dL (33.0-36.5); MEAN CORPUSCULAR VOLUME 103.4 FL (78-98); MEAN PLATELET VOLUME 9.8 FL (7.4-10.4); MONOCYTES # (AUTO) 0.3 X10'3 (0-0.9); NEUTROPHILS # (AUTO) 12.2 X10'3 (1.8-7.7); PLATELET COUNT 149 X10'3 (140-440); RED BLOOD COUNT 3.43 X10'6 (4.70-6.10); RED CELL DISTRIBUTION WIDTH 16.8 % (11.5-14.5); WHITE BLOOD COUNT 12.9 X10'3 (4.5-11.0)
[2023-07-29 07:19] LABS: INR 2.5 INR; PROTHROMBIN TIME 25.1 SECONDS (9.0-12.0)
[2023-07-29 07:25] LABS: ALANINE AMINOTRANSFERASE 55 U/L (12-78); ALBUMIN 2.9 G/DL (3.4-5.0); ALBUMIN/GLOBULIN RATIO 0.8 (1.1-1.5); ALKALINE PHOSPHATASE 119 IU/L (46-116); ANION GAP 12 (8-16); ASPARTATE AMINO TRANSFERASE 45 U/L (10-37); BILIRUBIN,TOTAL 1.7 MG/DL (0.1-1.0); BLOOD UREA NITROGEN 47 MG/DL (7-18); BUN/CREATININE RATIO 43.1 (10.0-20.0); CALCIUM 8.3 MG/DL (8.5-10.1); CHLORIDE 99 MMOL/L (99-107); CREATININE 1.09 MG/DL (0.60-1.10); GLUCOSE 177 MG/DL (70-104); MAGNESIUM 2.3 MG/DL (1.5-2.4); POTASSIUM 3.9 MMOL/L (3.5-5.1); SODIUM 134 MMOL/L (135-145); TOTAL CARBON DIOXIDE 22.9 MMOL/L (24-32); TOTAL PROTEIN 6.4 G/DL (6.4-8.2); eCRCL 53 ML/MIN; eGFR 65 ML/MIN
[2023-07-29] MEDS: vancomycin/NS 1 GM ADD-VANTAGE 250 ML IV SCH (08:38)
[2023-07-29] MEDS: pantoprazole 40mg Tablet.DR PO SCH (08:51)
[2023-07-29] MEDS: dronabinol 2.5mg capsule PO SCH (09:16)
[2023-07-29] MEDS: ampicillin inj 2 GM in normal saline 100ml IV soln 100 ML IV SCH (14:52)
[2023-07-29] MEDS: methylPREDNISolone sod succ/PF 40mg inj. IV SCH (20:17)
[2023-07-29] MEDS: warfarin 4mg tablet PO ONE (20:18)
[2023-07-30] VITALS (12 sets, daily range): BP systolic 100–127; BP diastolic 61–78; PULSE 73–91; RESP 13–20; TEMP 96.9–98.5; O2SAT 92–98
[2023-07-30 06:11] LABS: BASOPHILS % (AUTO) 0 % (0-1); EOSINOPHILS % (AUTO) 0 % (0-6); HEMATOCRIT 32.4 % (42.0-52.0); LYMPHOCYTES # (AUTO) 0.2 X10'3 (1.1-4.8); LYMPHOCYTES % (AUTO) 1.7 % (21-51); MEAN CORPUSCULAR HEMOGLOBIN 34.7 PG (27.0-31.0); MEAN CORPUSCULAR HGB CONC 33.9 g/dL (33.0-36.5); MEAN CORPUSCULAR VOLUME 102.4 FL (78-98); MEAN PLATELET VOLUME 9.6 FL (7.4-10.4); MONOCYTES # (AUTO) 0.3 X10'3 (0-0.9); MONOCYTES % (AUTO) 2.5 % (2-12); NEUTROPHILS % (AUTO) 95.8 % (42-75); PLATELET COUNT 142 X10'3 (140-440); RED BLOOD COUNT 3.17 X10'6 (4.70-6.10); RED CELL DISTRIBUTION WIDTH 16.9 % (11.5-14.5); WHITE BLOOD COUNT 13.6 X10'3 (4.5-11.0)
[2023-07-30 06:29] LABS: INR 2.8 INR; PROTHROMBIN TIME 27.8 SECONDS (9.0-12.0)
[2023-07-30 06:41] LABS: ALANINE AMINOTRANSFERASE 50 U/L (12-78); ALBUMIN 2.8 G/DL (3.4-5.0); ALBUMIN/GLOBULIN RATIO 0.8 (1.1-1.5); ALKALINE PHOSPHATASE 124 IU/L (46-116); ANION GAP 9 (8-16); ASPARTATE AMINO TRANSFERASE 29 U/L (10-37); BILIRUBIN,TOTAL 1.3 MG/DL (0.1-1.0); BLOOD UREA NITROGEN 55 MG/DL (7-18); CHLORIDE 100 MMOL/L (99-107); CREATININE 1.28 MG/DL (0.60-1.10); GLUCOSE 199 MG/DL (70-104); MAGNESIUM 2.2 MG/DL (1.5-2.4); POTASSIUM 3.8 MMOL/L (3.5-5.1); SODIUM 136 MMOL/L (135-145); TOTAL PROTEIN 6.1 G/DL (6.4-8.2); eCRCL 44 ML/MIN; eGFR 54 ML/MIN
[2023-07-30] MEDS: warfarin 3mg tablet PO ONE (20:46)
[2023-07-30] MEDS: carVEDilol 12.5mg tablet PO SCH (20:47)
[2023-07-31] VITALS (16 sets, daily range): BP systolic 96–106; BP diastolic 61–68; PULSE 57–92; RESP 14–18; TEMP 97–97.9; O2SAT 89–95
[2023-07-31 06:17] LABS: BASOPHILS % (AUTO) 0.1 % (0-1); EOSINOPHILS % (AUTO) 0 % (0-6); HEMATOCRIT 32.2 % (42.0-52.0); HEMOGLOBIN 10.9 g/dl (14.0-17.9); LYMPHOCYTES # (AUTO) 0.2 X10'3 (1.1-4.8); LYMPHOCYTES % (AUTO) 1.3 % (21-51); MEAN CORPUSCULAR HEMOGLOBIN 35.2 PG (27.0-31.0); MEAN CORPUSCULAR HGB CONC 33.9 g/dL (33.0-36.5); MEAN CORPUSCULAR VOLUME 103.8 FL (78-98); MEAN PLATELET VOLUME 9.8 FL (7.4-10.4); MONOCYTES # (AUTO) 0.3 X10'3 (0-0.9); MONOCYTES % (AUTO) 2.2 % (2-12); NEUTROPHILS # (AUTO) 13.5 X10'3 (1.8-7.7); NEUTROPHILS % (AUTO) 96.4 % (42-75); PLATELET COUNT 134 X10'3 (140-440); RED CELL DISTRIBUTION WIDTH 17.2 % (11.5-14.5)
[2023-07-31 06:27] LABS: INR 3.1 INR
[2023-07-31] MEDS ORDERED: VANCOMYCIN LEVEL IV ONE (06:30)
[2023-07-31 06:34] LABS: ALANINE AMINOTRANSFERASE 53 U/L (12-78); ALBUMIN 2.7 G/DL (3.4-5.0); ALBUMIN/GLOBULIN RATIO 0.8 (1.1-1.5); ALKALINE PHOSPHATASE 131 IU/L (46-116); ANION GAP 8 (8-16); ASPARTATE AMINO TRANSFERASE 29 U/L (10-37); BILIRUBIN,TOTAL 1.1 MG/DL (0.1-1.0); BLOOD UREA NITROGEN 50 MG/DL (7-18); BUN/CREATININE RATIO 43.9 (10.0-20.0); CALCIUM 7.9 MG/DL (8.5-10.1); CHLORIDE 100 MMOL/L (99-107); CREATININE 1.14 MG/DL (0.60-1.10); GLUCOSE 207 MG/DL (70-104); POTASSIUM 3.6 MMOL/L (3.5-5.1); SODIUM 138 MMOL/L (135-145); TOTAL CARBON DIOXIDE 29.7 MMOL/L (24-32); eCRCL 49 ML/MIN; eGFR 61 ML/MIN
[2023-07-31] MEDS: DAPTOmycin inj. 500 MG in normal saline 100ml IV soln 100 ML IV SCH (10:20)
[2023-08-01] VITALS (22 sets, daily range): BP systolic 96–132; BP diastolic 61–88; PULSE 7–82; RESP 8–20; TEMP 97.3–97.7; O2SAT 90–98
[2023-08-01] MEDS: methylPREDNISolone sod succ/PF 40mg inj. IV SCH (07:32)
[2023-08-01 07:54] LABS: BASOPHILS % (AUTO) 0.1 % (0-1); EOSINOPHILS % (AUTO) 0 % (0-6); HEMATOCRIT 32.9 % (42.0-52.0); HEMOGLOBIN 11.1 g/dl (14.0-17.9); LYMPHOCYTES # (AUTO) 0.3 X10'3 (1.1-4.8); LYMPHOCYTES % (AUTO) 1.7 % (21-51); MEAN CORPUSCULAR HGB CONC 33.7 g/dL (33.0-36.5); MEAN CORPUSCULAR VOLUME 103.8 FL (78-98); MEAN PLATELET VOLUME 9.8 FL (7.4-10.4); MONOCYTES # (AUTO) 0.8 X10'3 (0-0.9); MONOCYTES % (AUTO) 4.8 % (2-12); NEUTROPHILS # (AUTO) 15.4 X10'3 (1.8-7.7); NEUTROPHILS % (AUTO) 93.4 % (42-75); PLATELET COUNT 126 X10'3 (140-440); RED BLOOD COUNT 3.17 X10'6 (4.70-6.10); RED CELL DISTRIBUTION WIDTH 17.3 % (11.5-14.5); WHITE BLOOD COUNT 16.5 X10'3 (4.5-11.0)
[2023-08-01 08:16] LABS: INR 3.1 INR; PROTHROMBIN TIME 31.4 SECONDS (9.0-12.0)
[2023-08-01 08:34] LABS: ALANINE AMINOTRANSFERASE 55 U/L (12-78); ALBUMIN 2.8 G/DL (3.4-5.0); ALBUMIN/GLOBULIN RATIO 0.9 (1.1-1.5); ALKALINE PHOSPHATASE 128 IU/L (46-116); ANION GAP 6 (8-16); ASPARTATE AMINO TRANSFERASE 28 U/L (10-37); BILIRUBIN,TOTAL 1.3 MG/DL (0.1-1.0); BLOOD UREA NITROGEN 51 MG/DL (7-18); BUN/CREATININE RATIO 48.6 (10.0-20.0); CALCIUM 7.9 MG/DL (8.5-10.1); CHLORIDE 100 MMOL/L (99-107); CREATININE 1.05 MG/DL (0.60-1.10); GLUCOSE 193 MG/DL (70-104); POTASSIUM 3.5 MMOL/L (3.5-5.1); SODIUM 138 MMOL/L (135-145); eCRCL 54 ML/MIN; eGFR 67 ML/MIN
[2023-08-01] MEDS: MIDAZolam 1mg/ml 10ml vial IV ONE (08:43)
[2023-08-01] MEDS: fentaNYL/PF 50MCG/1 ML 2ML syringe IV ONE (08:45)
[2023-08-02] VITALS (12 sets, daily range): BP systolic 94–114; BP diastolic 62–73; PULSE 20–101; RESP 13–20; TEMP 97–98.3; O2SAT 92–99
[2023-08-02] MEDS: diatr meglu/diatrizoate 30ml oral sol.-(3 dose) bottle PO SCH (00:25)
[2023-08-02 07:09] LABS: BASOPHILS % (AUTO) 0 % (0-1); EOSINOPHILS % (AUTO) 0.2 % (0-6); HEMOGLOBIN 11.2 g/dl (14.0-17.9); LYMPHOCYTES # (AUTO) 0.5 X10'3 (1.1-4.8); LYMPHOCYTES % (AUTO) 3.1 % (21-51); MEAN CORPUSCULAR HEMOGLOBIN 34.9 PG (27.0-31.0); MEAN CORPUSCULAR HGB CONC 34.1 g/dL (33.0-36.5); MEAN CORPUSCULAR VOLUME 102.4 FL (78-98); MEAN PLATELET VOLUME 9.2 FL (7.4-10.4); MONOCYTES # (AUTO) 1.1 X10'3 (0-0.9); MONOCYTES % (AUTO) 6.9 % (2-12); NEUTROPHILS # (AUTO) 13.9 X10'3 (1.8-7.7); NEUTROPHILS % (AUTO) 89.8 % (42-75); PLATELET COUNT 128 X10'3 (140-440); RED BLOOD COUNT 3.22 X10'6 (4.70-6.10); RED CELL DISTRIBUTION WIDTH 17.8 % (11.5-14.5); WHITE BLOOD COUNT 15.4 X10'3 (4.5-11.0)
[2023-08-02 07:17] LABS: INR 3.1 INR
[2023-08-02 07:25] LABS: PROTHROMBIN TIME 30.7 SECONDS (9.0-12.0)
[2023-08-02 07:31] LABS: ALANINE AMINOTRANSFERASE 57 U/L (12-78); ALBUMIN 2.8 G/DL (3.4-5.0); ALBUMIN/GLOBULIN RATIO 0.9 (1.1-1.5); ALKALINE PHOSPHATASE 137 IU/L (46-116); ANION GAP 6 (8-16); ASPARTATE AMINO TRANSFERASE 31 U/L (10-37); BILIRUBIN,TOTAL 1.3 MG/DL (0.1-1.0); BLOOD UREA NITROGEN 49 MG/DL (7-18); CALCIUM 8.1 MG/DL (8.5-10.1); CHLORIDE 99 MMOL/L (99-107); CREATININE 1.02 MG/DL (0.60-1.10); GLUCOSE 165 MG/DL (70-104); POTASSIUM 3.6 MMOL/L (3.5-5.1); SODIUM 139 MMOL/L (135-145); TOTAL CARBON DIOXIDE 34.1 MMOL/L (24-32); eCRCL 57 ML/MIN; eGFR 70 ML/MIN
[2023-08-02] MEDS ORDERED: iohexol 300mg/ml 100ml inj. ONE (10:20)
[2023-08-02] MEDS: ampicillin inj 2 GM in normal saline 100ml IV soln 100 ML IV SCH (12:00)
[2023-08-02] MEDS: magnesium hydroxide 30ml (MOM) UD suspension PO PRN (23:06)
[2023-08-03] VITALS (15 sets, daily range): BP systolic 98–124; BP diastolic 63–75; PULSE 67–102; RESP 10–21; TEMP 97.1–97.9; O2SAT 91–99
[2023-08-03] MEDS: acetaminophen 325mg tablet PO PRN (04:08)
[2023-08-03 07:23] LABS: BASOPHILS # (AUTO) 0.1 X10'3 (0-0.2); BASOPHILS % (AUTO) 0.2 % (0-1); EOSINOPHILS % (AUTO) 0.1 % (0-6); HEMATOCRIT 35.7 % (42.0-52.0); LYMPHOCYTES # (AUTO) 0.5 X10'3 (1.1-4.8); LYMPHOCYTES % (AUTO) 2.2 % (21-51); MEAN CORPUSCULAR HEMOGLOBIN 34.8 PG (27.0-31.0); MEAN CORPUSCULAR HGB CONC 33.6 g/dL (33.0-36.5); MEAN CORPUSCULAR VOLUME 103.7 FL (78-98); MEAN PLATELET VOLUME 9.7 FL (7.4-10.4); MONOCYTES % (AUTO) 4.4 % (2-12); NEUTROPHILS # (AUTO) 20.5 X10'3 (1.8-7.7); NEUTROPHILS % (AUTO) 93.1 % (42-75); PLATELET COUNT 146 X10'3 (140-440); RED BLOOD COUNT 3.44 X10'6 (4.70-6.10); RED CELL DISTRIBUTION WIDTH 17.9 % (11.5-14.5); WHITE BLOOD COUNT 22.1 X10'3 (4.5-11.0)
[2023-08-03 07:31] LABS: INR 2.1 INR; PROTHROMBIN TIME 21.8 SECONDS (9.0-12.0)
[2023-08-03 07:51] LABS: ALANINE AMINOTRANSFERASE 53 U/L (12-78); ALBUMIN 2.9 G/DL (3.4-5.0); ALBUMIN/GLOBULIN RATIO 0.9 (1.1-1.5); ALKALINE PHOSPHATASE 135 IU/L (46-116); ANION GAP 6 (8-16); ASPARTATE AMINO TRANSFERASE 35 U/L (10-37); BILIRUBIN,TOTAL 2.1 MG/DL (0.1-1.0); BLOOD UREA NITROGEN 44 MG/DL (7-18); BUN/CREATININE RATIO 38.6 (10.0-20.0); CHLORIDE 99 MMOL/L (99-107); CREATININE 1.14 MG/DL (0.60-1.10); GLUCOSE 175 MG/DL (70-104); POTASSIUM 3.4 MMOL/L (3.5-5.1); SODIUM 140 MMOL/L (135-145); TOTAL CARBON DIOXIDE 34.9 MMOL/L (24-32); TOTAL PROTEIN 6.3 G/DL (6.4-8.2); eCRCL 46 ML/MIN; eGFR 61 ML/MIN
[2023-08-03] MEDS: methylPREDNISolone sod succ/PF 40mg inj. IV SCH (07:52)
[2023-08-03] MEDS: lactulose 20gm/30ml cup PO SCH (08:00)
[2023-08-03] MEDS: mineral oil 133ml enema RC ONE (09:53)
[2023-08-03 10:49] LABS: ABG BASE EXCESS 9.2 mmol/L (-2.0-2.0); ABG HCO3 32.3 mmol/L (22.0-26.0); ABG OXYGEN SATURATION 92.6 % (94-97); ABG PCO2 (T) 37.2 mmHg (35.0-48.0); ABG PH (T) 7.554 (7.340-7.440); ABG PO2 (T) 60.1 mmHg (75.0-100.0); ALLEN'S TEST POSITIVE; FCOHb 0.9 % (0.0-3.9); FHHb 7.3 % (0.0-5.0); FLOW 2 L/min; FMetHb 0.3 % (0.0-1.5); FO2Hb 91.5 % (94-97); MODE NASAL CANNULA; PATIENT TEMPERATURE 36.2; TOTAL HEMOGLOBIN 12.7 G/dl (14.0-17.9)
[2023-08-03] MEDS ORDERED: magnesium 4gm in 100ml NS 100 ML IV PRN (11:45)
[2023-08-03] MEDS ORDERED: potassium Cl 20 mEq SR tablet PO PRN (11:45)
[2023-08-03] MEDS ORDERED: magnesium 2GM in 50ml NS 50 ML IV PRN (11:45)
[2023-08-03] MEDS ORDERED: magnesium Cl slow-release 64mg tablet PO PRN (11:45)
[2023-08-03] MEDS: warfarin 5mg tablet PO ONE (20:28)
[2023-08-03] MEDS: potassium Cl 20 mEq SR tablet PO PRN (20:37)
[2023-08-04] VITALS (14 sets, daily range): BP systolic 96–129; BP diastolic 53–81; PULSE 68–97; RESP 11–20; TEMP 97–98; O2SAT 84–98
[2023-08-04 08:26] LABS: BASOPHILS % (AUTO) 0 % (0-1); EOSINOPHILS % (AUTO) 0.1 % (0-6); HEMATOCRIT 35.1 % (42.0-52.0); HEMOGLOBIN 11.8 g/dl (14.0-17.9); LYMPHOCYTES # (AUTO) 0.6 X10'3 (1.1-4.8); LYMPHOCYTES % (AUTO) 2.9 % (21-51); MEAN CORPUSCULAR HEMOGLOBIN 34.6 PG (27.0-31.0); MEAN CORPUSCULAR HGB CONC 33.5 g/dL (33.0-36.5); MEAN CORPUSCULAR VOLUME 103.1 FL (78-98); MEAN PLATELET VOLUME 9.7 FL (7.4-10.4); MONOCYTES # (AUTO) 0.8 X10'3 (0-0.9); MONOCYTES % (AUTO) 4.1 % (2-12); NEUTROPHILS # (AUTO) 18.2 X10'3 (1.8-7.7); NEUTROPHILS % (AUTO) 92.9 % (42-75); PLATELET COUNT 137 X10'3 (140-440); RED CELL DISTRIBUTION WIDTH 17.9 % (11.5-14.5); WHITE BLOOD COUNT 19.6 X10'3 (4.5-11.0)
[2023-08-04 08:39] LABS: ALANINE AMINOTRANSFERASE 51 U/L (12-78); ALBUMIN/GLOBULIN RATIO 0.9 (1.1-1.5); ALKALINE PHOSPHATASE 124 IU/L (46-116); ANION GAP 10 (8-16); ASPARTATE AMINO TRANSFERASE 34 U/L (10-37); BILIRUBIN,TOTAL 2.2 MG/DL (0.1-1.0); BLOOD UREA NITROGEN 43 MG/DL (7-18); BUN/CREATININE RATIO 35.2 (10.0-20.0); CALCIUM 8.6 MG/DL (8.5-10.1); CHLORIDE 102 MMOL/L (99-107); CREATININE 1.22 MG/DL (0.60-1.10); GLUCOSE 179 MG/DL (70-104); POTASSIUM 3.6 MMOL/L (3.5-5.1); SODIUM 144 MMOL/L (135-145); TOTAL PROTEIN 6.4 G/DL (6.4-8.2); eCRCL 43 ML/MIN; eGFR 57 ML/MIN
[2023-08-04] MEDS: furosemide 40mg/4ml inj IV ONE (08:41)
[2023-08-04 08:46] LABS: INR 1.8 INR; PROTHROMBIN TIME 18.3 SECONDS (9.0-12.0)
[2023-08-04] MEDS: piperacillin/tazo 4.5gm/100ml 100 ML IV SCH (16:51)
[2023-08-04] MEDS: mineral oil 133ml enema RC PRN (16:51)
[2023-08-04] MEDS ORDERED: LORazepam 2 mg/ml vial IM ONE (20:25)
[2023-08-04] MEDS: warfarin 3mg tablet PO ONE (20:34)
[2023-08-04] MEDS: enoxaparin 40mg/0.4ml syringe SUBCUT SCH (21:10)
[2023-08-04] MEDS: LORazepam 2 mg/ml vial IV ONE (23:03)
[2023-08-05] VITALS (17 sets, daily range): BP systolic 87–102; BP diastolic 55–73; PULSE 78–101; RESP 13–21; TEMP 97.2–98.8; O2SAT 92–100
[2023-08-05 06:43] LABS: BASOPHILS % (AUTO) 0 % (0-1); EOSINOPHILS % (AUTO) 0.2 % (0-6); HEMATOCRIT 33.2 % (42.0-52.0); HEMOGLOBIN 11.3 g/dl (14.0-17.9); LYMPHOCYTES # (AUTO) 0.5 X10'3 (1.1-4.8); MEAN PLATELET VOLUME 9.7 FL (7.4-10.4); MONOCYTES # (AUTO) 0.9 X10'3 (0-0.9); MONOCYTES % (AUTO) 5.4 % (2-12); NEUTROPHILS # (AUTO) 14.8 X10'3 (1.8-7.7); NEUTROPHILS % (AUTO) 91.4 % (42-75); PLATELET COUNT 113 X10'3 (140-440); RED BLOOD COUNT 3.22 X10'6 (4.70-6.10); RED CELL DISTRIBUTION WIDTH 17.2 % (11.5-14.5); WHITE BLOOD COUNT 16.2 X10'3 (4.5-11.0)
[2023-08-05 06:49] LABS: INR 1.8 INR; PROTHROMBIN TIME 18.8 SECONDS (9.0-12.0)
[2023-08-05 07:00] LABS: ALANINE AMINOTRANSFERASE 37 U/L (12-78); ALBUMIN 2.5 G/DL (3.4-5.0); ALBUMIN/GLOBULIN RATIO 0.8 (1.1-1.5); ALKALINE PHOSPHATASE 105 IU/L (46-116); ANION GAP 6 (8-16); ASPARTATE AMINO TRANSFERASE 27 U/L (10-37); BILIRUBIN,TOTAL 1.9 MG/DL (0.1-1.0); BLOOD UREA NITROGEN 38 MG/DL (7-18); BUN/CREATININE RATIO 31.1 (10.0-20.0); CALCIUM 7.9 MG/DL (8.5-10.1); CHLORIDE 104 MMOL/L (99-107); CREATININE 1.22 MG/DL (0.60-1.10); GLUCOSE 140 MG/DL (70-104); POTASSIUM 3.2 MMOL/L (3.5-5.1); SODIUM 145 MMOL/L (135-145); TOTAL PROTEIN 5.7 G/DL (6.4-8.2); eCRCL 45 ML/MIN; eGFR 57 ML/MIN
[2023-08-05] MEDS: furosemide 20 MG/2 ML vial IV SCH (09:01)
[2023-08-05] MEDS: potassium Cl 40MEQ/1/2NS 520ml 520 ML IV PRN (12:01)
[2023-08-05] MEDS ORDERED: enoxaparin 40mg/0.4ml syringe SUBCUT SCH ×2 (20:00→20:43)
[2023-08-05] MEDS: warfarin 3mg tablet PO ONE (21:49)
[2023-08-05] MEDS: enoxaparin 40mg/0.4ml syringe SQ ONE (22:22)
[2023-08-06] VITALS (14 sets, daily range): BP systolic 90–102; BP diastolic 56–67; PULSE 78–129; RESP 12–21; TEMP 97.1–98; O2SAT 92–100
[2023-08-06 06:45] LABS: ALANINE AMINOTRANSFERASE 35 U/L (12-78); ALBUMIN 2.5 G/DL (3.4-5.0); ALBUMIN/GLOBULIN RATIO 0.7 (1.1-1.5); ALKALINE PHOSPHATASE 96 IU/L (46-116); ANION GAP 7 (8-16); ASPARTATE AMINO TRANSFERASE 27 U/L (10-37); BILIRUBIN,TOTAL 1.9 MG/DL (0.1-1.0); BLOOD UREA NITROGEN 32 MG/DL (7-18); CALCIUM 8.3 MG/DL (8.5-10.1); CHLORIDE 105 MMOL/L (99-107); CREATININE 1.28 MG/DL (0.60-1.10); GLUCOSE 116 MG/DL (70-104); SODIUM 146 MMOL/L (135-145); TOTAL CARBON DIOXIDE 33.6 MMOL/L (24-32); TOTAL PROTEIN 5.9 G/DL (6.4-8.2); eCRCL 42 ML/MIN; eGFR 54 ML/MIN
[2023-08-06 06:54] LABS: PROTHROMBIN TIME 20.5 SECONDS (9.0-12.0)
[2023-08-06] MEDS ORDERED: magnesium 4gm in 100ml NS 100 ML IV PRN (15:25)
[2023-08-06] MEDS ORDERED: magnesium Cl slow-release 64mg tablet PO PRN (15:25)
[2023-08-06] MEDS ORDERED: magnesium 2GM in 50ml NS 50 ML IV PRN (15:25)
[2023-08-06] MEDS ORDERED: potassium Cl 20 mEq SR tablet PO PRN ×2 (15:25)
[2023-08-06] MEDS: potassium Cl 40MEQ/1/2NS 520ml 520 ML IV PRN (19:49)
[2023-08-06] MEDS: warfarin 5mg tablet PO ONE (20:18)
[2023-08-07 02:00] VITALS: BP 100/69; PULSE 83; RESP 17; TEMP 97.5; O2SAT 92
[2023-08-07 06:52] LABS: INR 2.3 INR; PROTHROMBIN TIME 23.2 SECONDS (9.0-12.0)
[2023-08-07 06:58] VITALS: BP 99/66; PULSE 84; RESP 18; TEMP 97.4; O2SAT 98
[2023-08-07 07:42] VITALS: PULSE 85; RESP 16; O2SAT 98
[2023-08-07 07:51] VITALS: PULSE 82; RESP 16
[2023-08-07] MEDS ORDERED: warfarin 5mg tablet PO ONE (21:00)
== END 2023-08-07 09:47 | disposition hospice, home (50) | DRG 871 ==
LOC: ER 16:23 → ED HOLD 21:35 → UNDOADMIN 22:20 → PCU 3S 22:50 → ED HOLD 22:50
PROVIDERS: ADMIT Internal Medicine; ATTEND Internal Medicine
PROC: B24BZZ4 Ultrasonography of Heart with Aorta, Transesophageal (ICD-10-PCS; principal; 2023-08-01)
DX: A41.81 Sepsis due to Enterococcus (principal); I50.23 Acute on chronic systolic (congestive) heart failure; J96.01 Acute respiratory failure with hypoxia; J69.0 Pneumonitis due to inhalation of food and vomit; I13.0 Hypertensive heart and chronic kidney disease with heart failure and stage 1 through stage 4 chronic kidney disease, or unspecified chronic kidney disease; I47.10 Supraventricular tachycardia, unspecified; E87.3 Alkalosis; I42.9 Cardiomyopathy, unspecified; E87.1 Hypo-osmolality and hyponatremia; Z68.1 Body mass index [BMI] 19.9 or less, adult; N18.9 Chronic kidney disease, unspecified; Z20.822 Contact with and (suspected) exposure to COVID-19; J43.9 Emphysema, unspecified; Z96.641 Presence of right artificial hip joint; R62.7 Adult failure to thrive; F41.1 Generalized anxiety disorder; Z66 Do not resuscitate; I48.91 Unspecified atrial fibrillation; I25.10 Atherosclerotic heart disease of native coronary artery without angina pectoris; E78.5 Hyperlipidemia, unspecified; E03.9 Hypothyroidism, unspecified; Z88.8 Allergy status to other drugs, medicaments and biological substances; Z79.01 Long term (current) use of anticoagulants; Z79.899 Other long term (current) drug therapy; Z90.49 Acquired absence of other specified parts of digestive tract; Z87.891 Personal history of nicotine dependence; Z95.0 Presence of cardiac pacemaker
CPT/HCPCS: 36415; 36600; 71045; 71250; 74018; 74177; 80048; 80053; 80076; 81003; 82803; 82948; 83605; 83735; 83880; 84145; 84484; 85018; 85025; 85610; 85651; 87040; 87077; 87081; 87186; 87811; 92508; 92616; 93005; 93308; 93312; 94640; 94760; 96365; 96367; 96375; 97161; 97530; 99291; A4314; A4349; A4615; A4620; A5200; A6213; A6222; A6223; A6250; A6258; A6446; A6449; A6455; A6590; G0378; J0290; J0692; J0696; J0878; J1644; J1650; J1940; J2060; J2250; J2543; J2920; J2930; J3010; J3370; J3475; J3480; J3490; J7030; J7040; Q0167; Q9963; Q9967